=== PATIENT | female | born 1965 | race Caucasian/White ===

== ENCOUNTER 2020-01-17 12:07 | Outpatient (CLI) | payer MEDICARE, SELFPAY ==
--- NOTE | ~2020-01-17 | XR_ITS ---
EXAMINATION: XR knee RT min 4V DATE: 01/17/2020 12:24 INDICATION: Right knee pain and effusion. TECHNIQUE: 4 views of right knee were obtained. COMPARISON: Right knee radiographs 04/04/2018 FINDINGS: There is varus attenuation at the knee. No fracture. There is severe osteoarthritis of medi al compartment, moderate osteoarthritis of patellofemoral compartment, and mild osteoarthritis of lat eral compartment. There is a moderate-sized knee joint effusion with loose bodies. IMPRESSION: 1. Severe right knee osteoarthritis. 2. Moderate-sized right knee joint effusion with loose bodies. Reviewed, dictated and finalized at location A.
== END 2020-01-17 12:08 | disposition home or self-care (01) ==
PROVIDERS: PCP Family Medicine; Visit Provider Family Medicine
DX: M25.461 Effusion, right knee (principal); M17.11 Unilateral primary osteoarthritis, right knee
CPT/HCPCS: 73564

== ENCOUNTER 2020-01-24 15:59 | Outpatient (CLI) | payer MEDICARE, SELFPAY ==
--- NOTE | ~2020-01-24 | MR_ITS ---
EXAMINATION: MR lumbar spine wo con DATE: 01/24/2020 16:41 INDICATION: Low back pain. TECHNIQUE: Magnetic resonance imaging (MRI) of the lumbar spine was performed without intravenous con trast. Sequences included sagittal T2-weighted FSE, sagittal T2-weighted FS FSE, sagittal T1-weighted FSE, and axial T2-weighted FSE. COMPARISON: None FINDINGS: 3 mm retrolisthesis L5 on S1. Vertebral body heights are normal. Annular fissures and mild disc heigh t loss at L1-L2 and moderate disc height loss at L5-S1. Additional mild disc height loss and small ce ntral disc protrusion at T10-T11. T1 hyperintense hemangioma at T12 and L4. The conus medullaris term inates at L1. There is normal signal in the caudal spinal cord. Paravertebral soft tissues are unrema rkable. The following disc levels are specifically discussed: T12-L1: The disc does not extend beyond the endplate margin. There is mild bilateral facet joint oste oarthritis. There is no neural foraminal stenosis. There is no central canal stenosis. L1-L2: Disc is bulging. There is mild bilateral facet joint osteoarthritis. There is mild bilateral n eural foraminal stenosis. There is mild central canal stenosis. L2-L3: The disc does not extend beyond the endplate margin. There is hypertrophy of the ligamentum fl avum. There is moderate right and severe left facet joint osteoarthritis. There is mild bilateral jessy ral foraminal stenosis. There is mild central canal stenosis. L3-L4: The disc does not extend beyond the endplate margin. There is hypertrophy of the ligamentum fl avum. There is mild right and moderate left facet joint osteoarthritis. There is mild right and mode rate left neural foraminal stenosis. There is mild central canal stenosis. L4-L5: Disc is mildly bulging. There is mild hypertrophy of the ligamentum flavum. There is mild bila teral facet joint osteoarthritis. There is moderate bilateral neural foraminal stenosis. There is mil d central canal stenosis. L5-S1: Fissure with broad-based disc extrusion extending from foraminal zone to foraminal zone with disc mat erial extending a few millimeters caudal to the level of the superior endplate of S1. There is mild h ypertrophy of the ligamentum flavum. There is severe bilateral facet joint osteoarthritis. There is moderate to severe neural foraminal stenosis. There is moderate central canal stenosis. IMPRESSION: 1. Continued slight progression of still moderate lumbar spondylosis. Reviewed, dictated and finalized at location A.
--- NOTE | ~2020-01-24 | XR_ITS ---
EXAMINATION: XR sacroiliac joints min 3V DATE: 01/24/2020 16:55 INDICATION: Sacroiliitis. Low back pain. TECHNIQUE: AP and left and right oblique views of the pelvis and sacrum and joints were obtained. COMPARISON: None. FINDINGS: Bone alignment is normal. No fracture. Bilateral sacral iliac joint spaces appear symmetric and relat ively preserved. No erosions or subarticular sclerosis to suggest an inflammatory sacroiliitis. Mild bilateral hip osteoarthritis. Severe disc height loss at L5-S1 and mild disc height loss at L4-L5. IU D in expected position in the central pelvis. IMPRESSION: 1. Unremarkable sacral iliac joints. 2. Severe spondylosis at the lumbosacral junction. 3. IUD Reviewed, dictated and finalized at location A.
== END 2020-01-24 16:00 | disposition home or self-care (01) ==
PROVIDERS: PCP Family Medicine; Visit Provider Nurse Practitioner Family
DX: M47.816 Spondylosis without myelopathy or radiculopathy, lumbar region (principal); M47.817 Spondylosis without myelopathy or radiculopathy, lumbosacral region; M46.1 Sacroiliitis, not elsewhere classified; Z97.5 Presence of (intrauterine) contraceptive device
CPT/HCPCS: 72148; 72202

== ENCOUNTER 2020-08-06 06:54 | Outpatient (NON) | payer MEDICARE, SELFPAY ==
[2020-08-06 17:56] LABS: SARS-CoV-2 RNA PCR Negative
== END 2020-08-06 06:55 ==
LOC: ANHCOVIDDT 07:01
PROVIDERS: PCP Family Medicine; Visit Provider Physician Assistant
DX: R68.89 Other general symptoms and signs (principal); Z20.828 Contact with and (suspected) exposure to other viral communicable diseases
CPT/HCPCS: 87635; C9803; U0003

== ENCOUNTER 2020-08-25 13:38 | Outpatient (CLI) | payer MEDICARE, SELFPAY ==
--- NOTE | ~2020-08-25 | MR_ITS ---
EXAMINATION: MR cervical spine wo con DATE: 08/25/2020 14:45 INDICATION: Neck pain. TECHNIQUE: Magnetic resonance imaging (MRI) of the cervical spine was performed without intravenous c ontrast. Sequences included sagittal T2-weighted FSE, sagittal STIR FSE, sagittal T1-weighted FSE, ax ial MERGE, and axial T2-weighted FSE. COMPARISON: Cervical spine MRI 04/12/2017, neck CT 12/14/2018 FINDINGS: There is 2 mm retrolisthesis of C3 on C4 and C5 on C6. Vertebral body heights are normal. T here is severely decreased disc height at C3-C4 and moderately decreased disc height at C5-C6 with en dplate remodeling. There is increased T2-weighted signal intensity in the disc at C5-C6, likely degen erative. The spinal cord signal intensity is normal. The following disc levels are specifically discu ssed: C2-C3: The disc does not extend beyond the endplate margin. There is no uncovertebral joint osteoarth ritis. There is moderate bilateral facet joint osteoarthritis. There is no neural foraminal stenosis. There is no central canal stenosis. C3-C4: The disc is bulging. There is severe right and moderate left uncovertebral joint osteoarthriti s. There is moderate bilateral facet joint osteoarthritis. There is moderate right and mild left neur al foraminal stenosis. There is mild central canal stenosis. C4-C5: The disc does not extend beyond the endplate margin. There is no uncovertebral joint osteoarth ritis. There is mild right and severe left facet joint osteoarthritis. There is mild left neural fora abhijit stenosis. There is no central canal stenosis. C5-C6: The disc is bulging. There is severe bilateral uncovertebral joint osteoarthritis. There is mi ld bilateral facet joint osteoarthritis. There is mild right and moderate left neural foraminal steno sis. There is mild central canal stenosis. C6-C7: The disc is bulging. There is mild bilateral uncovertebral joint osteoarthritis. There is mode rate bilateral facet joint osteoarthritis. There is mild bilateral neural foraminal stenosis. There i s mild central canal stenosis. C7-T1: There is a central protrusion. There is no uncovertebral joint osteoarthritis. There is severe bilateral facet joint osteoarthritis. There is mild bilateral neural foraminal stenosis. There is no central canal stenosis. IMPRESSION: 1. Severe cervical spondylosis, worsened from 04/12/2017. Reviewed, dictated and finalized at location B. 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
== END 2020-08-25 13:39 | disposition home or self-care (01) ==
LOC: ANHIMG 13:39
PROVIDERS: PCP Family Medicine; Visit Provider Nurse Practitioner Family
DX: M54.2 Cervicalgia (principal); M47.812 Spondylosis without myelopathy or radiculopathy, cervical region
CPT/HCPCS: 72141

== ENCOUNTER 2020-10-12 09:45 | Outpatient (CLI) | payer MEDICARE, SELFPAY ==
--- NOTE | 2020-10-12 11:12 | ECG_ITS ---
Measurements Intervals [place] Rate: 90 P: 38 [place]: 159 QRS: 8 QRSD: 93 T: 30 QT: 316 QTc: 387 Interpretive Statements SINUS RHYTHM POSSIBLE LEFT ATRIAL ENLARGEMENT INCOMPLETE RIGHT BUNDLE BRANCH BLOCK MINIMAL Q WAVES- HIGH LATERAL LEADS BASELINE ARTIFACT- I, II, III, AVR, AVL, AVF, V3 BORDERLINE ECG Electronically Signed On 10-12-2020 11:50:17 [employer]OR OF [employer]ES by Ata Mckeon D.O.
[2020-10-12 12:04] LABS: Basophils Percent Auto 0.4 % (0.2-1.2); Eosinophils Absolute Auto 0.1 K/mm3 (0-0.3); Eosinophils Percent Auto 1.1 % (0-4.4); Hematocrit 44.1 % (37.0-47.0); Hemoglobin 13.6 g/dL (12.0-15.0); Immature Granulocyte Absolute 0.02 K/mm3 (0.00-0.031); Immature Granulocyte Percent A 0.2 % (0-0.5); Lymphocytes Absolute Auto 2.22 K/mm3 (0.9-3.2); Lymphocytes Percent Auto 27.5 % (18.3-44.2); Mean Corpuscular HGB Conc 30.8 g/dl (32-36); Mean Corpuscular Hemoglobin 25.9 pg (26-34); Mean Platelet Volume 10.2 fl (7.4-10.4); Monocytes Absolute Auto 0.5 K/mm3 (0.1-0.6); Monocytes Percent Auto 6.1 % (2.6-8.5); Neutrophils Absolute Auto 5.2 K/mm3 (1.3-6.7); Neutrophils Percent Auto 64.7 % (45.5-73.1); Platelet Count Result 295 k/mm3 (150-375); Red Blood Count 5.25 M/mm3 (4.2-5.4); Red Cell Distribution Width 18.3 % (11.5-14.5); White Blood Count 8.1 K/mm3 (4.5-10.0)
[2020-10-12 12:13] LABS: Add Urine Microscopic? YES; Appearance Urine Clear (Clear); Bilirubin Urine Negative (Negative); Blood Urine Negative (Negative); Color Urine Straw (Yellow); Glucose Urine UA 3+ mg/dL (Negative); INR 0.8; Ketones Urine Negative (Negative); Leukocyte Esterase Ur Negative LEU/UL (Negative); Nitrate Urine Negative (Negative); Protein Urine Negative (Negative); Prothrombin Time 11.8 Seconds (11.1-14.7); RBC Urine 0-2 /hpf (0-2); Specific Grav Ur 1.021 (1.001-1.035); Squamous Epithelial Cell Urine Occasional /hpf (Few); Urobilinogen Urine Negative mg/dL (<2.0)
[2020-10-12 12:14] LABS: Hemoglobin A1C 7.4 % (<5.7); Partial Thromboplastin Time 31.9 SECONDS (22.3-36.8)
[2020-10-12 12:17] LABS: Anion Gap 9 mmol/L (8-16); Blood Urea Nitrogen 20 mg/dL (7-17); Calcium 10.1 mg/dL (8.4-10.2); Carbon Dioxide 32 mmol/L (22-30); Chloride 96 mmol/L (98-107); Estimated Glomerular Filt Rate 39; Glucose 186 mg/dL (65-105); Potassium 3.7 mmol/L (3.4-5.0); Sodium 137 mmol/L (137-145)
[2020-10-12 12:22] LABS: Urine Cotinine NEGATIVE
== END 2020-10-12 09:46 | disposition home or self-care (01) ==
LOC: ANHSURGERY 09:50
PROVIDERS: PCP Family Medicine; Visit Provider Orthopaedic Surgery
DX: Z01.812 Encounter for preprocedural laboratory examination (principal); M17.11 Unilateral primary osteoarthritis, right knee
CPT/HCPCS: 80048; 80307; 81001; 82040; 83036; 85025; 85610; 85730; 87081; 93005

== ENCOUNTER 2020-11-16 10:27 | Outpatient (CLI) | payer MEDICARE, SELFPAY ==
--- NOTE | ~2020-11-16 | US_ITS ---
EXAMINATION: US retroperitoneal comp DATE: 11/16/2020 10:57 INDICATION: Acute kidney failure TECHNIQUE: Multiple grayscale and Doppler ultrasound images of the kidneys were obtained. COMPARISON: None. FINDINGS: The right kidney measures 9.9 x 5.1 x 4.7 cm. The left kidney measures 9.9 x 4.7 x 4.8 cm. The kidneys demonstrate normal parenchymal echogenicity. There is no hydronephrosis. The bladder is n ormal. IMPRESSION: 1. Normal kidneys without hydronephrosis. Reviewed, dictated and finalized at location B.
== END 2020-11-16 10:28 | disposition home or self-care (01) ==
PROVIDERS: PCP Family Medicine; Visit Provider Internal Medicine Nephrology
DX: N17.9 Acute kidney failure, unspecified (principal)
CPT/HCPCS: 76770

== ENCOUNTER 2020-12-04 18:20 | Emergency (ER) | payer MEDICARE, SELFPAY ==
[2020-12-04 18:23] VITALS: BP 160/96; PULSE 128; RESP 20; TEMP 37.1; O2SAT 95
--- NOTE | 2020-12-04 18:46 | PC.NURSE ---
s/p cellulitis to posterior neck/upper back following a camping trip (came home 11/20), saw PCP 11/24 and was monitoring size and redness, returned to PCP 12/02 and started on doxy. Today states I'm concerned for staph and want to make sure it's not an abscess . Pt showed picture of wound from yesterday, pus drainage noted, today wound is soft/improved redness/no drainage noted/afebrile
--- NOTE | 2020-12-04 18:56 | ED.SKABFB ---
HPI - Skin/Abscess/Foreign Bdy General Chief complaint: Skin/Abscess/Foreign Body Stated complaint: skin complaint Time Seen by Provider: 12/04/20 18:48 Source: patient Mode of arrival: ambulatory Limitations: no limitations History of Present Illness HPI narrative: This is a 55 year old female that presents to the ER for rash to the posterior neck x 10 days. Reports she has been seeing her PCP for this. Reports she was started on Doxycycline yesterday. Reports some drainage to the area yesterday. Denies fever. Related Data Home Medications Medication Instructions Recorded Confirmed diclofenac sodium 4 g TOPICAL QID PRN 10/12/20 12/03/20 empagliflozin [Jardiance] 10 mg PO QAM 10/12/20 12/03/20 guaifenesin [Mucinex] 1,200 mg PO DAILY 10/12/20 12/03/20 morphine 15 mg PO BID PRN 10/12/20 12/03/20 omega-3 fatty acids-vitamin E 1 cap PO BID 10/12/20 12/03/20 [Fish Oil] oxybutynin chloride 5 mg tablet 5 mg PO BID tablet 11/25/20 12/03/20 Allergies Allergy/AdvReac Type Severity Reaction Status Date / Time Sulfa (Sulfonamide Allergy Severe Hives / Verified 12/04/20 18:26 Antibiotics) Red Face; airway swelling propoxyphene Allergy Mild itching; Verified 12/04/20 18:26 hives meperidine AdvReac Mild Nausea and Verified 12/04/20 18:26 Vomiting SUTURE AdvReac Mild INFLAMATION Uncoded 12/04/20 18:26 Review of Systems Review of Systems: Narrative: CONSTITUTIONAL: Denies fever SKIN: Reports rash and itching. All systems reviewed & are unremarkable except as noted in HPI and below PMFSH Past Medical History Medical History Adverse reaction to anesthetic agent Arthritis Benign essential HTN Cellulitis Chronic pain Dizziness GERD (gastroesophageal reflux disease) Hoarseness Mixed hyperlipidemia Overactive bladder Seasonal allergies Urinary frequency Vertigo Vision abnormalities Surgical History Surgical History History of right knee surgery 1981, Dr. Meredith History of shoulder surgery 1981, Dr. Meredith Type 2 diabetes mellitus without complications Family History Family History Father Family history of cardiac disorder Family history of cardiomyopathy Family history of coronary artery disease Mother Family history of malignant neoplasm of uterus Family history of malignant neoplasm of cervix Grandparent Carcinoma of colon Other Family history of lymphoma Hypertension Malignant neoplasm of prostate Social History Social History (Updated 12/03/20 @ 10:14 by Siri Jaffe CMA) Social History: Single Second hand tobacco smoke exposure: No Alcohol intake: never Substance use: never Substance use type: does not use Additional living arrangements comments: SON Additional occupation/education comments: Disability Gender identity (if verbalized by the patient): Female Spiritual care concerns: No Exam Narrative: Exam Narrative: GENERAL: Well-appearing, well-nourished, and in no acute distress. HEAD: Normocephalic, atraumatic. EYES: EOMI. NECK: Supple. No adenopathy or masses. EXTREMITIES: Normal range of motion. No edema. SKIN: Warm, dry. Red macules coalescing on the posterior neck. No active drainage or central fluctuance to suggest abscess NEURO: No focal deficits. Alert and oriented x3. PSYCH: Normal mood and affect Course Vital Signs Vital signs: Vital Signs Temperature 98.7 F 12/04/20 18:23 Pulse Rate 128 H 12/04/20 18:23 Respiratory Rate 20 12/04/20 18:23 Blood Pressure 160/96 H 12/04/20 18:23 Pulse Oximetry 95 12/04/20 18:23 Temperature 98.7 F 12/04/20 18:23 Pulse Rate 128 H 12/04/20 18:23 Respiratory Rate 20 12/04/20 18:23 Blood Pressure 160/96 H 12/04/20 18:23 Pulse Oximetry 95 12/04/20 18:23 MDM - Skin/Abscess/
[2020-12-04 19:44] VITALS: BP 122/86; PULSE 96; RESP 16; O2SAT 100
== END 2020-12-04 19:56 | disposition home or self-care (01) ==
PROVIDERS: Emergency Provider Emergency Medicine; PCP Family Medicine
DX: L03.221 Cellulitis of neck (principal); M19.90 Unspecified osteoarthritis, unspecified site; I10 Essential (primary) hypertension; K21.9 Gastro-esophageal reflux disease without esophagitis; E78.2 Mixed hyperlipidemia; N32.81 Overactive bladder; E11.9 Type 2 diabetes mellitus without complications; Z79.84 Long term (current) use of oral hypoglycemic drugs
CPT/HCPCS: 99281

== ENCOUNTER 2021-10-28 11:14 | Outpatient (CLI) | payer MEDICARE, SELFPAY ==
--- NOTE | ~2021-10-28 | XR_ITS ---
EXAMINATION: XR hand BI arthritis min 3V EXAM DATE: 10/28/2021 11:41 INDICATION: M19.90 - Unspecified osteoarthritis, unspecified site. TECHNIQUE: Right hand frontal, lateral and oblique projections obtained and reviewed. Left hand fron tanisha, lateral and oblique projections obtained and reviewed. Catchers projection of both hands. Compar ilene is made to prior examination from 11/16/2015. FINDINGS: Right hand: Mild polyarticular primary osteoarthritis. There are no acute fractures identified. No r adiopaque foreign bodies identified. There are no bony erosions identified. Left hand: Mild polyarticular primary osteoarthritis. There are no bony erosions identified. There ar e no acute fractures identified. No radiopaque foreign bodies identified. IMPRESSION: Mild symmetric bilateral hand osteoarthritis. Reviewed, dictated and finalized at location G.
== END 2021-10-28 11:15 | disposition home or self-care (01) ==
PROVIDERS: PCP Family Medicine; Visit Provider Internal Medicine
DX: M79.641 Pain in right hand (principal); M79.642 Pain in left hand; M19.042 Primary osteoarthritis, left hand; M19.041 Primary osteoarthritis, right hand
CPT/HCPCS: 73130

== ENCOUNTER 2021-11-05 07:36 | Outpatient (CLI) | payer MEDICARE, SELFPAY ==
--- NOTE | ~2021-11-05 | MR_ITS ---
EXAMINATION: MR hand RT wo/w con, MR hand LT wo/w con DATE: 11/05/2021 09:45 INDICATION: Lateral hand pain and weakness with inability to flex the fingers. Laboratory positive fo r rheumatoid arthritis. TECHNIQUE: 1. Magnetic resonance imaging (MRI) of the right hand was performed without and with 20 mL Multihance intravenous contrast to include the metacarpals and digits. Sequences included axial, sagittal and coronal T1-weighted FSE and T2-weighted FS FSE, axial T1-weighted FS FSE and postcontrast axial and c oronal T1-weighted FS FSE. 2. MRI of the left hand was performed without and with 20 mL Multihance intravenous contrast to inc lude the metacarpals and digits. Same contrast bolus was utilized for both studies. Sequences include d axial, sagittal and coronal T1-weighted FSE and T2-weighted FS FSE, axial T1-weighted FS FSE and po stcontrast axial and coronal T1-weighted FS FSE. COMPARISON: Bilateral hand radiographs dated 10/28/2021 FINDINGS: No fracture or pathologic marrow replacing process at either hand. Persistent flexion deformity at th e right fifth proximal interphalangeal joint with suggestion of some bowstringing of the flexor tendo n at the level of the mid to distal proximal phalanx suggesting disruption of the A3 rohan although assessment is somewhat limited on the larger field of view images of the hand as opposed to of the nger. Bone alignment is otherwise normal at both hands. Mild polyarticular osteoarthritis with typica l distribution most prominent at the first carpometacarpal and multiple predominantly distal interpha langeal joints. There is enhancing synovitis and multiple enhancing erosions at both hands consistent with an inflammatory arthritis with distribution most consistent with the provided history of rheuma toid arthritis. In the right hand erosions are seen at the proximal pole scaphoid, the lunate, capitate, at the radia l ulnar sides of the head of the fourth metacarpal, at the radial base of the third proximal phalanx and at the radial and ulnar sides of the base of the fourth proximal phalanx. There is enhancing syno vitis with thickening of the collateral ligament complexes at the second-fourth metacarpophalangeal j oints. Additional enhancing synovitis and thickening of the radial collateral ligament is seen at the fourth proximal interphalangeal joint. In the left hand there is enhancing synovitis at the third and fifth metacarpophalangeal joints and a t the fourth and fifth proximal interphalangeal joints with thickening of many of the associated radi al and ulnar collateral ligaments. Single small erosion at the radial base of the second proximal pha lanx. IMPRESSION: 1. Synovitis at several of the bilateral metacarpophalangeal and proximal interphalangeal joints lizett g with several periarticular erosions, the majority in the right hand consistent with provided histor y of rheumatoid arthritis. 2. Persistent flexion deformity at the right first proximal interphalangeal joint with suggestion of disruption of the A2 rohan resulting bowstringing of the flexor tendon. Reviewed, dictated and finalized at location A. IMPRESSION: 1. Synovitis at several of the bilateral metacarpophalangeal and proximal inter phalangeal joints along with several periarticular erosions, the majority in th e right hand consistent with provided history of rheumatoid arthritis. 2. Persistent flexion deformity at the right first proximal interphalangeal garrick nt with suggestion of disruption of the A2 rohan resulting bowstringing of the flexor tendon.
[2021-11-05 08:27] LABS: Estimated Glomerular Filt Rate > 60
== END 2021-11-05 07:37 | disposition home or self-care (01) ==
PROVIDERS: PCP Family Medicine; Visit Provider Internal Medicine
DX: M79.641 Pain in right hand (principal); M79.642 Pain in left hand; M65.842 Other synovitis and tenosynovitis, left hand; M65.841 Other synovitis and tenosynovitis, right hand; M21.832 Other specified acquired deformities of left forearm; M21.831 Other specified acquired deformities of right forearm
CPT/HCPCS: 73220; A9577

== ENCOUNTER 2021-12-15 08:01 | Outpatient (CLI) | payer MEDICARE, SELFPAY ==
--- NOTE | 2021-12-15 09:08 | ECG_ITS ---
Measurements Intervals [place] Rate: 81 P: 37 [place]: 163 QRS: 1 QRSD: 102 T: 31 QT: 357 QTc: 415 Interpretive Statements SINUS RHYTHM INCOMPLETE RIGHT BUNDLE BRANCH BLOCK DELAYED PRECORDIAL R/S TRANSITION BASELINE ARTIFACT- I, II, AVR, AVL, AVF BORDERLINE ECG Electronically Signed On 12-15-2021 9:31:16 CDT by Ata Mckeon D.O.
[2021-12-15 09:34] LABS: Basophils Absolute Auto 0.1 K/mm3 (0.0-0.1); Basophils Percent Auto 0.5 % (0.2-1.2); Eosinophils Absolute Auto 0.1 K/mm3 (0-0.3); Eosinophils Percent Auto 0.8 % (0-4.4); Hematocrit 47.7 % (37.0-47.0); Hemoglobin 15.3 g/dL (12.0-15.0); Immature Granulocyte Absolute 0.02 K/mm3 (0.00-0.031); Immature Granulocyte Percent A 0.2 % (0-0.5); Lymphocytes Absolute Auto 2.65 K/mm3 (0.9-3.2); Lymphocytes Percent Auto 27.5 % (18.3-44.2); Mean Corpuscular HGB Conc 32.1 g/dl (32-36); Mean Corpuscular Hemoglobin 28.8 pg (26-34); Mean Corpuscular Volume 89.7 fl (80-100); Mean Platelet Volume 10.5 fl (7.4-10.4); Monocytes Absolute Auto 0.5 K/mm3 (0.1-0.6); Monocytes Percent Auto 5.2 % (2.6-8.5); Neutrophils Absolute Auto 6.3 K/mm3 (1.3-6.7); Neutrophils Percent Auto 65.8 % (45.5-73.1); Platelet Count Result 274 k/mm3 (150-375); Red Blood Count 5.32 M/mm3 (4.2-5.4); Red Cell Distribution Width 14.7 % (11.5-14.5); White Blood Count 9.6 K/mm3 (4.5-10.0)
[2021-12-15 09:43] LABS: Albumin Level 4.8 g/dL (3.5-5.1)
[2021-12-15 09:44] LABS: INR 0.9; Prothrombin Time 11.9 Seconds (11.1-14.7)
[2021-12-15 09:45] LABS: Partial Thromboplastin Time 33.3 SECONDS (22.3-36.8)
[2021-12-15 09:46] LABS: Anion Gap 11 mmol/L (8-16); Blood Urea Nitrogen 20 mg/dL (7-17); Calcium 9.2 mg/dL (8.4-10.2); Carbon Dioxide 27 mmol/L (22-30); Chloride 95 mmol/L (98-107); Estimated Glomerular Filt Rate > 60; Glucose 137 mg/dL (65-110); Potassium 4.4 mmol/L (3.4-5.0); Sodium 133 mmol/L (137-145)
[2021-12-15 09:47] LABS: Urine Cotinine NEGATIVE
[2021-12-15 10:28] LABS: Hemoglobin A1C 6.4 % (<5.7)
== END 2021-12-15 08:02 | disposition home or self-care (01) ==
PROVIDERS: Anesthesiology; PCP Family Medicine; Visit Provider Orthopaedic Surgery
DX: Z01.818 Encounter for other preprocedural examination (principal); M17.11 Unilateral primary osteoarthritis, right knee; R94.4 Abnormal results of kidney function studies; E11.9 Type 2 diabetes mellitus without complications
CPT/HCPCS: 36415; 80048; 80307; 82040; 83036; 85025; 85610; 85730; 86850; 86900; 86901; 87081; 93005

== ENCOUNTER 2021-12-27 00:30 | Day surgery (SDC) | payer MEDICARE, SELFPAY ==
[2021-12-15 08:21] VITALS: BP 142/91; PULSE 85; RESP 16; TEMP 36.1; O2SAT 97; BMI 38.0
--- NOTE | 2021-12-15 08:38 | PC.NURSE ---
Report to the Outpatient Waiting Room, entrance under the green pavilion located off [facility], at time __6:00AM on date ___12/27/21____. OR Time: __7:30AM . - You and your visitor will be asked a series of questions to screen for COVID 19 for your protection. - Only one visitor is allowed at this time. - The patient visitor is requested to leave or wait in car when not with patient. - A mask is required within the hospital. Patients may have clear liquids (water, carbonated beverages, clear teas, apple juice) until 3 hours prior to surgery with a maximum of 20 ounces. - No food from midnight until time of surgery - Infants may have breast milk until 4 hours before surgery, formula 6 hours prior to surgery. - Children will be allowed to drink immediately following surgery. If applicable, please bring a bottle or sippy cup to assist with drinking. Juice, water, soda, and popsicles are readily available. For infants on formula, please bring formula the day of surgery. Pacifiers are allowed. Take the following medications with a SIP of water the morning of surgery: ___DULOXETINE, MORPHINE NEEDED FOR PAIN Medications to discontinue per physician ____HOLD ALL VITAMINS/SUPPLEMENTS 7 DAYS PRE-OP, (XERALTO IS ORDERED FOR AFTER SURGERY) Date to take last dose___12/20/21 Please no make-up, nail tajik, hairspray, perfume, deodorant, or body powder the day of surgery. No jewelry (including any body piercings) or valuables the day of surgery, leave them at home. Please take a shower or bath the night before, or the morning of, surgery with an antibacterial soap. Wear comfortable, loose fitting clothing. Children are encouraged to wear pajamas. - Jewelry must be removed prior to entering the operating room. Rings and piercings that are not removed may be cut off. - The hospital will not accept responsibility for valuables. - Please leave all valuables, including medications, at home the day of surgery. If you are going home after surgery, a licensed set key driver must drive you home. - NO public transportation without another adult. - We recommend that an adult stay with you for 24 hours following discharge. - We also recommend that you do not drive, make important decision, drink alcoholic beverages, or take any drugs that were not prescribed by your health care provider for at least 24 hours after your discharge time. For Pediatric surgeries, we recommend two adults accompany the child home (only one inside the building at this time). Follow any additional instructions given to you from your surgeon. If you or anyone in your household have experienced Covid symptoms in the past week, please notify your surgeon or the nurse liaison at the phone number below for possible testing. Telephone instructions given to __PATIENT and asked if any additional questions and then verbalized understanding. Patient advised to call surgeon office or pre surgery nurse liaison [phone] if any additional questions.
--- NOTE | 2021-12-26 21:24 | WPDANESEPPF ---
Anes - Initial Pre Proc Eval Procedure: Operation Date: 12/27/21 07:30 Proposed Procedures p Right Total Knee Arthroplasty - Db Juarez MD Date/Time: 12/26/21 21:24 Surgeon: Db Juarez MD Pre Op Diagnosis: oa right knee Patient Data Age: 56 Gender: F Height: 1.68 m Weight: 106.7 kg Last Vital Signs Temp 36.1 C L 12/15/21 08:21 Pulse 85 12/15/21 08:21 Resp 16 12/15/21 08:21 BP 142/91 H 12/15/21 08:21 Pulse Ox 97 12/15/21 08:21 Allergies Allergy/AdvReac Type Severity Reaction Status Date / Time Sulfa (Sulfonamide Allergy Severe Hives / Verified 12/27/21 06:17 Antibiotics) Red Face; airway swelling propoxyphene Allergy Mild itching; Verified 12/27/21 06:17 hives meperidine AdvReac Mild Nausea and Verified 12/27/21 06:17 Vomiting SUTURE AdvReac Mild INFLAMATION Uncoded 12/27/21 06:17 Home Medications Medication Instructions Recorded Confirmed Type morphine 15 mg PO BID PRN 10/12/20 12/27/21 History omega-3 fatty acids-vitamin E 1 cap PO DAILY 10/12/20 12/27/21 History [Fish Oil] cetirizine 10 mg tablet 10 mg PO DAILY #90 tablet 10/21/20 12/27/21 Rx exenatide microspheres 2 mg/0.85 2 mg SUBCUT WEEKLY #10.2 ml 04/16/21 12/27/21 Rx mL subcutaneous auto-injector diclofenac sodium 1 % topical gel 4 g TOPICAL QID PRN #100 g 07/20/21 12/15/21 Rx atorvastatin 40 mg tablet 40 mg PO QPM #90 tablet 08/27/21 12/27/21 Rx duloxetine 30 mg capsule,delayed 30 mg PO QAM #90 cap 08/27/21 12/27/21 Rx release duloxetine 60 mg capsule,delayed 60 mg PO QAM #90 cap 08/27/21 12/27/21 Rx release omeprazole 40 mg capsule,delayed 40 mg PO BID #180 cap 08/27/21 12/27/21 Rx release lancets #200 each 11/24/21 12/08/21 Rx rivaroxaban 10 mg tablet 10 mg PO DAILY #14 tablet 12/08/21 12/15/21 Rx azelastine 1 spray INTRANASAL Q12H PRN 12/15/21 12/27/21 History fluticasone propionate 1 spray INTRANASAL Q12H PRN 12/15/21 12/15/21 History multivitamin [Multiple Vitamin] 1 tablet PO DAILY 12/15/21 12/27/21 History oxybutynin chloride 5 mg PO BID 12/15/21 12/27/21 History triamcinolone acetonide 1 applic TOPICAL BID PRN 12/15/21 12/27/21 History Patient hx anesthesia problems: none Family hx anesthesia problems: none Results Review: All pre-operative results and documents have been reviewed as part of the pre-operative evaluation. [facility] Past Medical History Medical History (Updated 12/26/21 @ 21:26 by Gregory Landin MD) Adverse reaction to anesthetic agent Allergies Arthritis Benign essential HTN Bilateral hand pain Cellulitis Chronic narcotic use Chronic pain Diabetes Dizziness Encounter for medication management GERD (gastroesophageal reflux disease) Hoarseness Mixed hyperlipidemia Obesity Overactive bladder Right knee DJD Seasonal allergies Urinary frequency Vertigo Vision abnormalities Surgical History Surgical History History of carpal tunnel release of both wrists History of right knee surgery 1981, Dr. Meredith History of shoulder surgery 1981, Dr. Meredith Type 2 diabetes mellitus without complications Family History Family History Father Family history of cardiac disorder Family history of cardiomyopathy Family history of coronary artery disease Mother Family history of malignant neoplasm of uterus Family history of malignant neoplasm of cervix Grandparent Carcinoma of colon Other Family history of lymphoma Hypertension Malignant neoplasm of prostate Social History Social History Social History: Single Smoking status: Never smoker Second hand tobacco smoke exposure: No Alcohol intake: never Alcohol use details: Occasionally Substance use: never Substance use type: does not use Living arrangements: with family Additional living arrangement
--- NOTE | 2021-12-26 21:27 | WPDANESPNB ---
Anes - Peripheral Nerve Block Date/Time: 12/26/21 21:27 I have discussed with the patient/family/POA the placement of a peripheral nerve block for post-operative pain management, including associated risks, benefits, complications, and side effects. Alternative methods of post-operative analgesia were detailed. Questions were solicited and answers provided to the satisfaction of the patient/family/POA. Time-Out: A pre-procedural Time-Out was completed immediately before starting the procedure and confirmed: Patient Identification, Site, Procedure, Patient Position and the Availability of Requisite Equipment. Clinical Indications: Acute post-operative pain management requested by the operative surgeon. Nerve Block Insertion Note Anes-nerve block: adductor canal right Patient position: supine Skin prep: chlorhexidine Needle: 22 gauge, stimulating, insulated echogenic needle. Needle length: 80 mm Technique: ultrasound Technique comment: in plane Injectate: bupivacaine 0.5% with epi 5 mcg/ml (30cc) Observations: tolerated well Complications: none Procedure start time:: 725 Procedure end time:: 730
[2021-12-27] VITALS (16 sets, daily range): BP systolic 114–157; BP diastolic 58–90; PULSE 77–97; RESP 8–20; TEMP 35.9–36.6; O2SAT 93–98; BMI 37.3
--- NOTE | ~2021-12-27 | XR_ITS ---
EXAMINATION: XR knee RT 2V DATE: 12/27/2021 10:41 CDT INDICATION: Right total knee arthroplasty TECHNIQUE: 2 views right knee FINDINGS: There is a right total knee arthroplasty in expected position. Subcutaneous gas with fluid and air in the joint are consistent with recent surgery. No evidence of periprosthetic fracture. IMPRESSION: 1. Recent right total knee arthroplasty. Reviewed, dictated and finalized at location A.
[2021-12-27] MEDS: ACETAMINOPHEN 500 MG TABLET 1000 MG PO (06:30)
[2021-12-27] MEDS: LACTATED RINGERS 1,000 ML 30 ML IV CONT ×3 (06:35→11:13)
[2021-12-27 06:38] LABS: Glucose Point of Care 142 mg/dl (65-105)
[2021-12-27] MEDS: TRANEXAMIC ACID 1,000MG/ISO100 1,000 MG/100 ML BAG 200 MG IVPB (07:06)
--- NOTE | 2021-12-27 07:22 | WPDHPUPDATE1 ---
History and Physical Update Update Date/Time: 12/27/21 07:22 History and Physical has been reviewed, including an updated exam of the patient. There are NO changes in the patient's condition. Risks, benefits, and alternatives have been discussed and questions answered. Patient agrees to proceed with procedure.
[2021-12-27] MEDS: SCOPOLAMINE 1.5 MG PATCH TRANSDERM (07:23)
[2021-12-27] MEDS: ceFAZolin 2 GM/D5W 50 ML 2 GM/50 ML BAG IVPB ×3 (07:37→23:23)
[2021-12-27] MEDS: TRANEXAMIC ACID 1,000 MG/10 ML AMPUL 1000 MG IV PUSH (09:05)
[2021-12-27] MEDS: ceFAZolin SODIUM 1 GM VIAL IV PUSH (09:13)
--- NOTE | 2021-12-27 10:10 | W.PM.PROC2 ---
Procedure Note - Detailed Date of Procedure 12/27/21 Pre-op Diagnosis oa right knee Post-op Diagnosis Same Procedure Performed right total knee replacement Surgeon Db Juarez MD [employer] Aliyah Kaminski Anesthesia General and Regional Description of Procedure The patient was identified and proper site identified. In the preop holding area the anesthesia team performed a right lower extremity sub sartorial block after which the patient was taken to the operating room and transferred to the OR table positioning supine taking care to pad the torso and extremities. After general anesthetic induction and intubation a nonsterile tourniquet was placed high on the right thigh. The right lower extremity was prepped and draped in the usual sterile fashion. The extremity was exsanguinated and with the knee flexed tourniquet was inflated to 300 mmHg remaining up for approximately 65 minutes. An anterior midline incision was made and a modified medial parapatellar approach was used. Infra and suprapatellar fat pads were excised. Patella was resected leaving 15 mm thickness and prepared for the size 31 round three peg component. Using the intramedullary guide the distal femur was cut in the proper orientation for the size 62.5 femoral component. Using the extramedullary guide the tibia was cut perpendicular to the long axis protecting collateral ligaments and popliteal structures. It was sized to a 67. Flexion and extension gaps were balanced. Trial reduction was undertaken and the weight-bearing line was noted to passed through the center of the joint. Proximal tibia was drilled and punched in the proper orientation for the real component. Trial components were removed. The bone surfaces were washed with pulsatile lavage and dried. The real components were cemented simultaneously. The knee was held in extension and the patella held clamped until the cement had cured. Excess cement was removed from the joint. After trialing it was determined that the 12 mm insert gave full range of motion from 0-120 degrees of flexion and the patella tracked in the femoral groove with no lift-off. After final lavage the joint the real 12 E poly insert was placed and secured with a locking bar. A Betadine and saline wash was placed into the wound and allowed to sit for approximately 3 minutes and then evacuated. Periarticular tissues were infiltrated with 60 cc of the arthroplasty solution. Surgicel powder was used deep and superficial to the extensor mechanism prior to closure. The extensor mechanism was repaired with #2 Vicryl suture and 0 looped PDS suture. Subcu was reapproximated with 3-0 Monocryl and 2-0 Quill with tissue adhesive for the skin. A sterile dressing was applied. she tolerated the procedure well, was awakened and extubated, transferred to the bed and was taken to recovery area in stable condition. There were no known intraoperative complications. Perioperative antibiotics were administered. Estimated Blood Loss 250 Tourniquet Time 65 Drains No Packing No Pathology None sent Complications No immediate complications Condition Stable Disposition PACU
[2021-12-27] MEDS: fentaNYL CITRATE INJ (*CRX) 100 MCG/2 ML VIAL 25 MCG IV PUSH ×5 (10:35→11:05)
[2021-12-27] MEDS: diphenhydrAMINE HCl INJ 50 MG/ML VIAL 25 MG IV PUSH ×2 (10:50→11:10)
--- NOTE | 2021-12-27 11:05 | SUR.PREOP ---
1100: PT C/O RT PLANTAR FOOT ITCHING SEVERE SINCE ADMISSION TO PACU. FOOT CLEANSED WITH S&W. NO RASH/HIVES/REDNESS OR SWELLING. BENADRYL GIVEN. PT C/O PERSISTENT ITCHING WITH RELIEF THAT IS NOW AT PALMS OF HANDS AND EARS . DR. HAILE AWARE. NNO. CONTINUE TO MONITOR. VSS.
--- NOTE | 2021-12-27 12:01 | SUR.PHASEI ---
1155:SPOKE W/ DR. SUÁREZ TO MAKE AWARE OF PT ITCHING IN PACU UNRESOLVED. ORDERS RCV'D. REPORT GIVEN TO FLOOR RN
[2021-12-27 12:22] LABS: Glucose Point of Care 186 mg/dl (65-105)
[2021-12-27] MEDS: oxyCODONE/ACETAMINOPHEN (*CRX) 5-325 MG TABLET 1 TABLET PO ×3 (12:24→20:58)
[2021-12-27] MEDS: SODIUM CHLORIDE 0.9% IV 1,000 ML 125 ML IV CONT (12:25)
[2021-12-27] MEDS: KETOROLAC 15 MG/ML VIAL (*BKC) IV PUSH ×3 (12:50→23:23)
[2021-12-27] MEDS: OXYBUTYNIN CHLORIDE 5 MG TABLET PO (16:02)
[2021-12-27] MEDS: PANTOPRAZOLE 40 MG TABLET PO (16:02)
[2021-12-27] MEDS: SENNA/DOCUSATE SODIUM TABLET 2 TAB PO (16:03)
[2021-12-27] MEDS: diphenhydrAMINE HCl CAP 25 MG CAPSULE 50 MG PO ×2 (16:03→22:03)
[2021-12-27 16:38] LABS: Glucose Point of Care 309 mg/dl (65-105)
[2021-12-27 16:58] LABS: Glucose Point of Care 307 mg/dl (65-105)
[2021-12-27] MEDS: ATORVASTATIN 40 MG TABLET PO (17:42)
[2021-12-27] MEDS: INSULIN ASPART (*BKC) 100 UNITS/ML SUB-Q (18:04)
--- NOTE | 2021-12-27 18:32 | PC.NURSE ---
This patient, Ruthie Birch, was admitted to Medical Room 241-01 from surgical post op R total knee MD Cee report received from [facility] Pacu nurse. Patient/family oriented to hospital policies and general routines including ID bracelet, bed and alarms, visiting hours, pain management, procedures, bathroom and other care routines, personal items, smoking policy, room service/diet, and visiting hours. Information on how to activate the Rapid Response Team has been discussed. Patient/Family are encouraged to report perceived risks to care and to ask questions if they do not understand what they are told or what they should do.
[2021-12-27 21:25] LABS: Glucose Point of Care 228 mg/dl (65-105)
--- NOTE | 2021-12-27 21:44 | PM.IMHP ---
H&P: HPI History of Present Illness Date/Time: 12/27/21 21:44 Chief Complaint: Post op. Narrative: This is a 56-year-old female with past medical history significant for right knee degenerative joint disease, over reactive bladder, vertigo, mixed hyperlipidemia, obesity, diabetes, chronic pain, chronic narcotic use, gastroesophageal reflux disease. Patient is status post right knee total arthroplasty at the time of my visit patient denied any discomfort her sugars have been slightly elevated in the 300s. Patient denies any nausea, vomiting, abdominal pain, chills, fevers, states that her pain is well controlled, and has been participating with PT. Review of Systems Review of Systems: Patient is status post up total knee replacement right knee. Constitutional: Constitutional: Denies chills ENT: Denies dysphagia, Denies vertigo, Denies dizziness, Denies nasal congestion, Denies nasal discharge, Denies nasal obstruction and Denies odynophagia Cardiovascular: Cardiovascular: Denies chest pain, Denies lightheadedness, Denies palpitations and Denies dyspnea on exertion Respiratory: Respiratory: Denies cough and Denies excessive phlegm production Gastrointestinal: Gastrointestinal: Denies abdominal pain, Denies dyspepsia, Denies heartburn, Denies diarrhea, Denies nausea and Denies vomiting Genitourinary: Genitourinary: Denies dysuria Musculoskeletal: Musculoskeletal: Reports back pain and Reports other (Right knee total arthroplasty) Integumentary/Breasts: Skin/Breast: Denies rash Neurologic: Denies dizziness, Denies focal weakness and Denies Sensory deficit (Neuro) Endocrine: Endocrine: Denies cold intolerance, Denies heat intolerance, Denies polyphagia, Denies polydipsia, Denies polyuria and Denies palpitations Hematologic/Lymphatic: Hematologic/Lymphatic: Reports no additional hematologic/lymphatic complaints and Reports as per HPI Allergic/Immunologic: Allergic/Immunologic: Reports no additional allergic/immunologic complaints and Reports as per HPI [facility] Past Medical History Medical History (Updated 12/28/21 @ 02:54 by Dhaval Villa MD) Adverse reaction to anesthetic agent Allergies Arthritis Benign essential HTN Bilateral hand pain Cellulitis Chronic narcotic use Chronic pain Diabetes Dizziness Encounter for medication management GERD (gastroesophageal reflux disease) Hoarseness Mixed hyperlipidemia Obesity Overactive bladder Right knee DJD Seasonal allergies Urinary frequency Vertigo Vision abnormalities Surgical History Surgical History (Updated 12/28/21 @ 07:54 by YUDELKA Cavazos) History of carpal tunnel release of both wrists History of right knee surgery 1981, Dr. Meredith History of shoulder surgery 1981, Dr. Meredith Type 2 diabetes mellitus without complications Family History Family History Father Family history of cardiac disorder Family history of cardiomyopathy Family history of coronary artery disease Mother Family history of malignant neoplasm of uterus Family history of malignant neoplasm of cervix Grandparent Carcinoma of colon Other Family history of lymphoma Hypertension Malignant neoplasm of prostate Social History Social History Social History: Single Smoking status: Never smoker Second hand tobacco smoke exposure: No Alcohol intake: never Alcohol use details: Occasionally Substance use: never Substance use type: does not use Additional living arrangements comments: SON Additional occupation/education comments: Disability Gender identity (if verbalized by the patient): Female Sexual Orientation (if Verbalized by the Patient): Straight or Heterosexual Spiritual care concerns: No Meds Home Medications and Allergies Home Medications Medication Instructions Recorded Confirmed Type morphine 15 mg tablet,ex
[2021-12-28] MEDS: oxyCODONE/ACETAMINOPHEN (*CRX) 5-325 MG TABLET 1 TABLET PO ×3 (01:07→08:19)
[2021-12-28 05:48] VITALS: BP 112/59; PULSE 84; RESP 20; TEMP 36; O2SAT 95
[2021-12-28 05:50] VITALS: BP 112/59; PULSE 84; RESP 20; TEMP 36; O2SAT 95
[2021-12-28 06:14] LABS: Basophils Percent Auto 0.1 % (0.2-1.2); Hematocrit 32.6 % (37.0-47.0); Hemoglobin 10.6 g/dL (12.0-15.0); Immature Granulocyte Absolute 0.07 K/mm3 (0.00-0.031); Immature Granulocyte Percent A 0.5 % (0-0.5); Lymphocytes Absolute Auto 0.91 K/mm3 (0.9-3.2); Lymphocytes Percent Auto 6.9 % (18.3-44.2); Mean Corpuscular HGB Conc 32.5 g/dl (32-36); Mean Corpuscular Hemoglobin 29.2 pg (26-34); Mean Corpuscular Volume 89.8 fl (80-100); Monocytes Absolute Auto 0.9 K/mm3 (0.1-0.6); Monocytes Percent Auto 6.5 % (2.6-8.5); Neutrophils Absolute Auto 11.4 K/mm3 (1.3-6.7); Platelet Count Result 186 k/mm3 (150-375); Red Blood Count 3.63 M/mm3 (4.2-5.4); Red Cell Distribution Width 14.2 % (11.5-14.5); White Blood Count 13.3 K/mm3 (4.5-10.0)
[2021-12-28] MEDS: KETOROLAC 15 MG/ML VIAL (*BKC) IV PUSH (06:16)
[2021-12-28 06:27] LABS: Anion Gap 4 mmol/L (8-16); Blood Urea Nitrogen 12 mg/dL (7-17); Calcium 8.7 mg/dL (8.4-10.2); Carbon Dioxide 30 mmol/L (22-30); Chloride 106 mmol/L (98-107); Estimated CRCL calculation 83 ml/min; Estimated Glomerular Filt Rate > 60; Glucose 160 mg/dL (65-110); Potassium 4.9 mmol/L (3.4-5.0); Sodium 140 mmol/L (137-145)
[2021-12-28 07:40] LABS: Glucose Point of Care 141 mg/dl (65-105)
--- NOTE | 2021-12-28 07:48 | PM.PNORT ---
Subjective Subjective Date/Time Seen: 12/28/21 07:48 Post Op day: 1 Objective Data Vital Signs Vital Signs: Vital Signs - 24 hr 12/27/21 10:26 12/27/21 10:40 12/27/21 10:55 Temperature 96.6 F L Pulse Rate 93 90 94 Respiratory Rate 8 L 12 16 Blood Pressure 157/71 H 138/75 140/72 Pulse Oximetry 94 95 96 Oxygen Delivery Simple Face Mask Nasal Cannula Nasal Cannula Oxygen Flow Rate 6 3 3 12/27/21 11:10 12/27/21 11:25 12/27/21 11:40 Temperature Pulse Rate 91 97 88 Respiratory Rate 16 15 16 Blood Pressure 137/69 142/70 H 137/77 Pulse Oximetry 96 98 97 Oxygen Delivery Nasal Cannula Nasal Cannula Nasal Cannula Oxygen Flow Rate 3 2 2 12/27/21 13:32 12/27/21 13:35 12/27/21 12:10 Temperature 97.0 F L Pulse Rate 90 Respiratory Rate 16 Blood Pressure 131/78 Pulse Oximetry 98 Oxygen Delivery Room Air Room Air Oxygen Flow Rate 12/27/21 12:25 12/27/21 12:55 12/27/21 13:55 Temperature 96.8 F L 96.8 F L 96.8 F L Pulse Rate 83 77 91 Respiratory Rate 16 18 18 Blood Pressure 141/64 H 133/90 138/69 Pulse Oximetry 97 96 97 Oxygen Delivery Oxygen Flow Rate 12/27/21 18:00 12/27/21 19:34 12/27/21 20:19 Temperature 97.0 F L 97.3 F L Pulse Rate 97 97 94 Respiratory Rate 16 20 Blood Pressure 144/67 H 114/76 Pulse Oximetry 94 94 93 Oxygen Delivery Room Air Oxygen Flow Rate 12/27/21 22:00 12/27/21 20:00 12/27/21 23:52 Temperature 97.3 F L 97.9 F Pulse Rate 97 91 Respiratory Rate 20 20 Blood Pressure 114/76 126/58 L Pulse Oximetry 94 95 Oxygen Delivery Room Air Oxygen Flow Rate 12/28/21 05:48 12/28/21 05:50 Temperature 96.8 F L 96.8 F L Pulse Rate 84 84 Respiratory Rate 20 20 Blood Pressure 112/59 L 112/59 L Pulse Oximetry 95 95 Oxygen Delivery Oxygen Flow Rate Intake/Output Intake/Output: Intake & Output 12/25/21 12/26/21 12/27/21 05/24/22 23:59 23:59 23:59 23:59 Intake Total 3540 290 Output Total 1350 4000 Balance 2190 -3710 Meds/Results Medications: Active Medications Generic Name Dose Route Start Last Admin Trade Name Freq PRN Reason Stop Dose Admin Atorvastatin Calcium 40 mg 12/27/21 18:00 12/27/21 17:42 Atorvastatin 40 Mg Tablet PO 40 mg QPM JAIME Administration Azelastine HCl 1 spray 12/27/21 12:03 Azelastine Hcl Nasal 0.1% 137 Mcg/Spr 30 Ml Btl NASAL Q12H PRN Congestion Bisacodyl 10 mg 12/27/21 12:03 Bisacodyl 10 Mg Suppository RECTAL DAILY PRN Constipation Cyclobenzaprine HCl 10 mg 12/27/21 12:03 Cyclobenzaprine Hcl 10 Mg Tablet PO Q8H PRN Spasms Dextrose 12.5 gm 12/27/21 17:33 Dextrose 50% 25 Gm/50 Ml Syringe IV PUSH PRN PRN Hypoglycemia Protocol Diphenhydramine HCl 50 mg 12/27/21 12:03 12/27/21 22:03 Diphenhydramine Hcl Cap 25 Mg Capsule PO 50 mg Q6H PRN Administration Itching Duloxetine HCl 30 mg 12/28/21 09:00 Duloxetine Hcl 30 Mg Capsule.Dr GERONIMO ARRIAGA [facility] Duloxetine HCl 60 mg 12/28/21 09:00 Duloxetine Hcl 60 Mg Capsule.Dr GERONIMO ARRIAGA [facility] Fluticasone Propionate 1 spray 12/27/21 12:03 Fluticasone Propionate 0.05% Na Spr 16 Gm Btl (*Bkc) NASAL Q12H PRN Congestion Glucagon 1 mg 12/27/21 17:33 Glucagon For Inj 1 Mg Vial IM PRN PRN Hypoglycemia Protocol Glucose 15 gm 12/27/21 17:33 Glucose Oral Gel 15 Gm Of Glucse In 37.5 Gm Tube PO PRN PRN Hypoglycemia Protocol Cefazolin Sodium 2 gm in 50 mls @ 100 mls/hr 12/27/21 15:30 12/27/21 23:53 Ancef 2 Gm/D5w 50 Ml IVPB 12/28/21 07:59 Infused Q8H JAIME Infusion Dextrose 1,000 mls @ 100 mls/hr 12/27/21 17:33 Dextrose 5% 1,000 Ml IVPB PRN PRN Hypoglycemia Protocol Insulin Aspart 2 - 5 units 12/27/21 17:42 12/27/21 18:04 Insulin Aspart (*Bkc) 100 Units/Ml SUB-Q 4 units TIDWM JAIME Administration Protocol Ketorolac Tromethamine 15 mg 12/27/21 12:03 12/28
--- NOTE | 2021-12-28 07:56 | PM.DS ---
DS: Admitting Diagnosis Discharge Date 12/28/2021 Admitting Diagnosis Right knee osteoarthritis DS: Discharge Diagnosis Discharge Diagnosis (1) S/P total knee arthroplasty: Code(s): Z96.659 - Presence of unspecified artificial knee joint Status: Acute Assessment and Plan: 56-year-old female postop day 1 after right total knee replacement with Dr. Juarez. She had an uneventful overnight stay. She is have a feeling of global itching that suspect may be from the anesthesia and will go away with time. She can continue to take Benadryl as needed for this. She will call our office if she continues to have issues in a few days. Otherwise, plan to see her in our office in 2 weeks for wound check. DS: Summary Hospital Course Reason for hospitalization: Observation after outpatient procedure Hospital Course: 56-year-old female admitted for observation after right total knee replacement. Hospitalist was consulted due to type 2 diabetes mellitus. Patient was seen by therapy after surgery and plan on seen them again today prior to discharge. Exercises and postop instructions were reviewed with patient in great detail this morning. Status at Discharge Functional status at discharge: uses cane/walker Overall status at discharge: patient is progressing back to baseline Time Spent with Patient Time attestation: Total time spent providing and/or coordinating discharge services: Time spent: Less than 30 minutes Exam Const: General: comfortable and no acute distress HENMT: Mouth: Yes moist mucous membranes Eyes: General: appearance normal, both eyes and all related structures Neck: Neck: supple and no JVD Resp: Effort & Inspection: normal respiratory effort GI: Inspection: non-distended Skin: General skin exam: normal color and no rashes or lesions noted Neuro: Sensory Exam: normal sensation Extrem: Other: Exam of the right lower extremity reveals a clean and dry surgical dressing. She is able to fully extend the knee to 0? with active range of motion. She denies any numbness or tingling down the leg. She is able to wiggle toes without difficulty. Only mild edema noted to the lower extremity. Neurovascular status unremarkable. Calves negative. Psych: Mental Status: mental status grossly normal DS: Data Data Completed and Pending Labs on day of discharge: Labs from last 24 hours 12/28/21 12/28/21 12/28/21 07:33 05:00 05:00 WBC 13.3 H RBC 3.63 L Hgb 10.6 L D Hct 32.6 L MCV 89.8 MCH 29.2 MCHC 32.5 RDW 14.2 Plt Count 186 MPV 11.0 H Immature Gran % (Auto) 0.5 Neut % (Auto) 86.0 H Lymph % (Auto) 6.9 L [place] % (Auto) 6.5 Eos % (Auto) 0.0 Baso % (Auto) 0.1 L Lymph # (Auto) 0.91 [place] # (Auto) 0.9 H Eos # (Auto) 0.0 Baso # (Auto) 0.0 Abs Immat Gran (auto) 0.07 H Absolute Neuts (auto) 11.4 H Absolute Nucleated RBC 0.0 Nucleated RBC % 0.0 Sodium 140 Potassium 4.9 Chloride 106 Carbon Dioxide 30 Anion Gap 4 L BUN 12 D Creatinine 0.80 Estim Creat Clear Calc 83 Estimated GFR > 60 Glucose 160 H POC Capillary Glucose 141 H Calcium 8.7 12/27/21 12/27/21 12/27/21 21:06 16:56 16:35 WBC RBC Hgb Hct MCV MCH MCHC RDW Plt Count MPV Immature Gran % (Auto) Neut % (Auto) Lymph % (Auto) [place] % (Auto) Eos % (Auto) Baso % (Auto) Lymph # (Auto) [place] # (Auto) Eos # (Auto) Baso # (Auto) Abs Immat Gran (auto) Absolute Neuts (auto) Absolute Nucleated RBC Nucleated RBC % Sodium Potassium Chloride Carbon Dioxide Anion Gap BUN Creatinine Estim Creat Clear Calc Estimated GFR Glucose POC Capillary Glucose 228 H 307 H 309 H Calcium 12/27/21 12:19 WBC RBC Hgb Hct MCV MCH MCHC RDW Plt Count MPV Immature Gran % (Auto) Neut % (Auto) Lymph % (Auto)
[2021-12-28] MEDS: ceFAZolin 2 GM/D5W 50 ML 2 GM/50 ML BAG IVPB (08:08)
[2021-12-28] MEDS: DULoxetine HCL 30 MG CAPSULE.DR PO (08:09)
[2021-12-28] MEDS: DULoxetine HCL 60 MG CAPSULE.DR PO (08:09)
[2021-12-28] MEDS: LORATADINE 10 MG TABLET PO (08:10)
[2021-12-28] MEDS: MULTIVITAMINS THERAPEUTIC TAB (*BKC) 1 TABLET PO (08:10)
[2021-12-28] MEDS: RIVAROXABAN 10 MG TABLET PO (08:10)
[2021-12-28] MEDS: polyethylene glycoL 3350 17 GM POWD.PACK PO (08:10)
[2021-12-28] MEDS: PANTOPRAZOLE 40 MG TABLET PO (08:10)
[2021-12-28] MEDS: SENNA/DOCUSATE SODIUM TABLET 2 TAB PO (08:11)
[2021-12-28] MEDS: OXYBUTYNIN CHLORIDE 5 MG TABLET PO (08:11)
[2021-12-28] MEDS: TRIAMCINOLONE ACET 0.1% CREAM 15 GM TUBE 1 APPLIC TOPICAL (08:12)
--- NOTE | 2021-12-28 09:32 | PM.IMPN ---
Progress Note: A&P Assessment and Plan (1) T2DM (type 2 diabetes mellitus): Code(s): E11.9 - Type 2 diabetes mellitus without complications Status: Acute Assessment and Plan: Insulin Lispro sliding scale, Accu-checks qAc and HS and Hold oral hypoglycemics (2) S/P total knee arthroplasty: Code(s): Z96.659 - Presence of unspecified artificial knee joint Status: Acute Assessment and Plan: Her orthopedic performed surgical intervention on the patient From a medical standpoint patient appears stable. (3) Obesity: Code(s): E66.9 - Obesity, unspecified Status: Acute Assessment and Plan: Provided education Subjective Date/time seen: 12/28/21 09:32 Patient is alert and oriented at bedside. She appears stable for discharge. Will follow from a distance. Review of Systems Review of Systems: All systems reviewed & are unremarkable except as noted in HPI and below Exam Narrative: General: No acute distress. Mental Status: Awake, alert and oriented to person, place, and time with clear speech. Skin: Skin in warm, dry and intact without rashes or lesions. Head: Normocephalic and atraumatic. Eyes: Conjunctivae are clear without exudates or hemorrhage. Sclera is non-icteric. EOM are intact, PERRLA. Ears: The external ear and canal are non-tender and without swelling or discharge. Nose: Nasal mucosa is pink and moist. Septum midline. Nares patent bilaterally. Throat: Oral mucosa pink and moist with good dentition. Tongue midline. Neck: The neck supple without adenopathy. Trachea midline. No JVD. Cardiac: S1 and S2 regular rate and rhythm. No murmurs, gallops, or rubs auscultated. Respiratory: Chest wall symmetric, nontender and without deformity or trauma. Respirations even and unlabored. Lung sounds are clear to auscultation in all lobes bilaterally without wheezes, rhonchi, or rales. Abdominal: Abdomen soft, round and non-tender to palpation. Bowel sounds present and normoactive in all 4 quadrants. Spine: Neck and back with grossly normal curvature, no deformity in appearance or signs of trauma. Extremities: Upper and lower extremities atraumatic without tenderness or deformity. Full range of motion and muscle strength 5/5 to all extremities bilaterally. Right lower extremity dressing in place, appears clean dry and intact Neurological: Full and symmetric motor and light touch sensation bilaterally. Cranial nerves II-XII grossly intact. Objective Data Vital Signs Vital Signs: Vital Signs - 24 hr 12/27/21 10:26 12/27/21 10:40 12/27/21 10:55 Temperature 96.6 F L Pulse Rate 93 90 94 Respiratory Rate 8 L 12 16 Blood Pressure 157/71 H 138/75 140/72 Pulse Oximetry 94 95 96 Oxygen Delivery Simple Face Mask Nasal Cannula Nasal Cannula Oxygen Flow Rate 6 3 3 12/27/21 11:10 12/27/21 11:25 12/27/21 11:40 Temperature Pulse Rate 91 97 88 Respiratory Rate 16 15 16 Blood Pressure 137/69 142/70 H 137/77 Pulse Oximetry 96 98 97 Oxygen Delivery Nasal Cannula Nasal Cannula Nasal Cannula Oxygen Flow Rate 3 2 2 12/27/21 13:32 12/27/21 13:35 12/27/21 12:10 Temperature 97.0 F L Pulse Rate 90 Respiratory Rate 16 Blood Pressure 131/78 Pulse Oximetry 98 Oxygen Delivery Room Air Room Air Oxygen Flow Rate 12/27/21 12:25 12/27/21 12:55 12/27/21 13:55 Temperature 96.8 F L 96.8 F L 96.8 F L Pulse Rate 83 77 91 Respiratory Rate 16 18 18 Blood Pressure 141/64 H 133/90 138/69 Pulse Oximetry 97 96 97 Oxygen Delivery Oxygen Flow Rate 12/27/21 18:00 12/27/21 19:34 12/27/21 20:19 Temperature 97.0 F L 97.3 F L Pulse Rate 97 97 94 Respiratory Rate 16 20 Blood Pressure 144/67 H 114/76 Pulse Oximetry 94 94 93 Oxygen Delivery Room Air Oxygen Flow Rate 12/27/21 22:00 12/27/21 20:00 12/27/21 23:52 Temperature 97.3 F L 97.9 F Pulse Rate 97 91 Respiratory Rate 20 20 Blood Pressure 114/76 126/58 L Pulse Oximetry 94 95 Oxygen Delivery R
[2021-12-28 10:02] VITALS: BP 122/62; PULSE 84; RESP 14; TEMP 36.7; O2SAT 94
[2021-12-28 11:51] LABS: Glucose Point of Care 262 mg/dl (65-105)
== END 2021-12-28 12:15 | disposition home or self-care (01) ==
LOC: ANHSURGERY 07:24 → ANH2MED 12:05
PROVIDERS: PCP Family Medicine; Visit Provider Orthopaedic Surgery
PROC: (CPT 27447; principal; 2021-12-27 07:30)
DX: M17.11 Unilateral primary osteoarthritis, right knee (principal); G89.18 Other acute postprocedural pain; I10 Essential (primary) hypertension; E11.9 Type 2 diabetes mellitus without complications; K21.9 Gastro-esophageal reflux disease without esophagitis; E78.2 Mixed hyperlipidemia; G89.29 Other chronic pain; Z79.891 Long term (current) use of opiate analgesic; Z79.01 Long term (current) use of anticoagulants; E66.9 Obesity, unspecified; Z68.37 Body mass index [BMI] 37.0-37.9, adult
CPT/HCPCS: 27447; 64447; 36415; 73560; 80048; 80307; 82040; 82948; 83036; 85025; 85610; 85730; 86850; 86900; 86901; 87081; 93005; 97110; 97116; 97161; 97165; 97535; A9270; C1713; C1776; J0171; J0690; J1100; J1170; J1200; J1815; J1885; J2250; J2270; J2405; J2704; J2795; J3010; J7030; J7120

== ENCOUNTER 2022-02-23 12:30 | Outpatient (RCR) | payer MEDICARE, SELFPAY ==
--- NOTE | 2022-01-04 15:20 | PTOPEVAL ---
PHYSICAL THERAPY INITIAL EVALUATION. Thank you for referring Ruthie Birch to [facility].? The patient is scheduled to be seen for therapy? 2x/week for 7 weeks. Please review, sign, date and return this plan of care KAREEM. I agree with and certify that the following plan of care is medically necessary. Referring Physician Date Attending Provider: Db Juarez MD *PT Outpatient Evaluation Start: 01/04/22 Evaluation Information Problem Diagnosis R TKA Onset 12/27/21 Subjective Information Pt states she had a TKA on Text:As Reported By Patient. Her main complaint is Family the knee tightness and the swelling in her knee. She states her son helps to move her leg when she cannot. Pt reports she is doing her exercises 3-4 times a day. Pt states prior to surgery her son does all of the cooking and cleaning because she is unable to. Pt states she is disabled. Prior Level of Function Pain Assessment Self Report Pain Assessment Right Knee(s) Reported Pain Level 0 Pain Description Aching,Pressure,Tightness Greatest Pain Intensity 2 Lower Extremity Range of Motion Knee Range of Motion Right Knee Flexion Range of Motion - Active 55 Knee Flexion Range of Motion - Passive 76 Knee Extension Range of Motion - Active -20 Knee Range of Motion Comments L knee active ROM 0-140 Lower Extremity Muscle Strength Testing Gross Lower Extremity Strength - unable to properly perform quat set and SAQ LLE grossly 4+/5 RLE: -30 deg during LAQ - unable to perform active hip flexion in sitting Palpation Assessment Palpation soreness around entire knee region, bruising in posterior knee and along posterior calf Extremity Circumference Assessment Location Right Body Part Knee Circumference Comments Mid Calf L,R: 40, 42cm knee joint line L,R: 40, 44cm supra patellar pole L,R: 51, 53cm Balance Assessment Timed Up and Go Test (TUG) (Seconds) 32 Assistive Devices Walker, Wheeled 5 Time Sit to Stand Time in Seconds 31 5 Time Sit to Stand Comments With use of UEs, unable to Query Text:Normative Data: If Greater complete without UEs, RLE Than 15 Seconds, 74% Increase Risk for placed anteriorly
--- NOTE | 2022-02-23 13:21 | PTOPEVAL ---
PHYSICAL THERAPY PROGRESS REPORT AND DISCHARGE SUMMARY. Thank you for referring Ruthie Birch to [facility].? The patient is to be discharged from skilled therapy services at this time. Please review, sign, date and return this plan of care KAREEM. I agree with and certify that the following plan of care is medically necessary. Referring Physician Date Attending Provider: Db Juarez MD Evaluation Information Diagnosis R TKA Onset 12/27/21 Subjective Information Pt states her knee is doing Query Text:As Reported By Patient/ great. She has been going to [facility] [place] almost daily to exercise. She reports stairs are still challenges. Pt states she now wakes up without pain, which is amazing Pain Assessment Right Knee(s) Reported Pain Level 1 Pain Description Tightness Greatest Pain Intensity 1 Lower Extremity Range of Motion Knee Range of Motion Right Knee Flexion Range of Motion - Active 124 Knee Flexion Range of Motion - Passive 125 Knee Extension Range of Motion - Active 0 Knee Range of Motion Comments L knee active ROM 0-140 Lower Extremity Muscle Strength Testing Gross Lower Extremity Strength L knee flexion/extension 5/5 R knee flexion 5/5 R knee extension 4+/5 Palpation Assessment Palpation mild tenderness noted at lateral joint line, equal patellar mobility Balance Assessment Assistive Devices Walker, Wheeled Comments Initially: 32s with WW 02/23/22: 8s without device 5 Time Sit to Stand 5 Time Sit to Stand Comments Initially: 31s With use of UEs Query Text:Normative Data: If Greater , unable to complete without Than 15 Seconds, 74% Increase Risk for UEs, RLE placed anteriorly Recurrent Falls 02/23/22: 15s without the use of UEs, equal weight distribution Gait Assessment Ambulation Assistive Devices Non Gait Pattern Ataxic Gait Other Gait Observations mild antaglic pattern on the L , equal weight distribution, step length, and stride length 2 Minute Walk 2 Minute Walk Test Comments Initially: 175ft (1.45ft/s) with WW 02/23/22: 505ft (4.2ft/s) without AD Stair Climbing Assessment Stair Climbing Assistive Devices Railings Stair Climbing Comments Single hand rail for balance. Can ascend/descend with a
== END 2022-02-24 08:45 | disposition home or self-care (01) ==
LOC: ANHPT 12:30
PROVIDERS: PCP Family Medicine; Visit Provider Orthopaedic Surgery
DX: Z47.1 Aftercare following joint replacement surgery (principal); Z96.651 Presence of right artificial knee joint
CPT/HCPCS: 97014; 97110; 97112; 97140; 97161; 97530; G0283

== ENCOUNTER 2023-02-09 07:38 | Day surgery (SDC) | payer MEDICARE, SELFPAY ==
[2022-12-29 13:59] VITALS: BMI 38.2
[2023-01-09 14:01] VITALS: BMI 36.6
--- NOTE | 2023-02-08 12:55 | WPDANESEPPF ---
Anes - Initial Pre Proc Eval Procedure: Operation Date: 02/09/23 10:00 Proposed Procedures p Esophagogastroduodenoscopy - Irwin Moralez MD Date/Time: 02/08/23 12:55 Surgeon: Irwin Moralez MD Pre Op Diagnosis: Dysphagia and Gerd Patient Data Age: 57 Gender: F Height: 1.68 m Weight: 103 kg Allergies Allergy/AdvReac Type Severity Reaction Status Date / Time Sulfa (Sulfonamide Allergy Severe Hives / Verified 02/09/23 08:32 Antibiotics) Red Face; airway swelling Sutures Allergy Intermediate Rash Verified 02/09/23 08:32 meperidine Allergy Mild Nausea and Verified 02/09/23 08:32 Vomiting propoxyphene Allergy Mild itching; Verified 02/09/23 08:32 hives Home Medications Medication Instructions Recorded Confirmed Type omega-3 fatty acids-vitamin E 1 cap PO DAILY 10/12/20 02/09/23 History 1,000 mg capsule fluticasone propionate 50 1 spray intranasal Q12H PRN 06/09/22 02/09/23 Rx mcg/actuation nasal Congestion #16 grams spray,suspension blood sugar diagnostic (OneTouch #200 ea 07/12/22 01/03/23 Rx Ultra Test strips) omeprazole 40 mg capsule,delayed 40 mg PO BID #200 caps 08/08/22 02/09/23 Rx release lancets (Accu-Chek Fastclix Lancet #204 ea 08/10/22 01/03/23 Rx Drum) blood-glucose meter (OneTouch #1 ea 09/12/22 01/03/23 Rx Verio Flex Start kit) meclizine 25 mg tablet 25 mg PO BID PRN dizziness #30 tabs 09/19/22 02/09/23 Rx clobetasol 0.05 % topical cream 1 applic topical BID ECZEMA EAR 09/20/22 02/09/23 Rx CANAL 2 weeks #15 grams azelastine 137 mcg (0.1 %) nasal 1 spray intranasal Q12H PRN 11/03/22 02/09/23 Rx spray aerosol Congestion #30 mL duloxetine 30 mg capsule,delayed See Rx Instructions .Route 11/03/22 02/09/23 Rx release .COMPLEX #90 caps duloxetine 60 mg capsule,delayed See Rx Instructions .Route 11/03/22 02/09/23 Rx release .COMPLEX #90 caps metformin 1,000 mg tablet,extended 1,000 mg PO DAILY #90 tabs 11/25/22 02/09/23 Rx release 24hr ropinirole 0.25 mg tablet 0.25 mg PO BID #180 tabs 11/25/22 02/09/23 Rx cetirizine 10 mg tablet 10 mg PO DAILY #90 tabs 12/20/22 02/09/23 Rx atorvastatin 40 mg tablet See Rx Instructions .Route 01/02/23 02/09/23 Rx .COMPLEX #90 tabs oxybutynin chloride 5 mg tablet See Rx Instructions .Route 01/02/23 02/09/23 Rx .COMPLEX #200 tabs montelukast 10 mg tablet See Rx Instructions .Route 01/20/23 02/09/23 Rx .COMPLEX #100 tabs tirzepatide 5 mg/0.5 mL See Rx Instructions .Route 02/03/23 02/09/23 Rx subcutaneous pen injector .COMPLEX #2 mL (Elly) Patient hx anesthesia problems: none Family hx anesthesia problems: none Results Review: All pre-operative results and documents have been reviewed as part of the pre-operative evaluation. [facility] Past Medical History Medical History Adverse reaction to anesthetic agent Allergies Arthritis Benign essential HTN Bilateral hand pain Cellulitis Chronic narcotic use Chronic pain Diabetes Dizziness Encounter for medication management GERD (gastroesophageal reflux disease) Hoarseness Mixed hyperlipidemia Obesity Overactive bladder Right knee DJD Seasonal allergies Urinary frequency Vertigo Vision abnormalities Surgical History Surgical History History of carpal tunnel release of both wrists History of right knee surgery 1981, Dr. Meredith History of shoulder surgery 1981, Dr. Meredith S/P total knee arthroplasty Right knee 12/27/2021 Type 2 diabetes mellitus without complications Family History Family History Father Family history of cardiac disorder Family history of cardiomyopathy Family history of coronary artery disease Mother Family history of malignant neoplasm of uterus Family history of malignant neoplasm of cervix Grandparent Carcinoma of colon Oth
[2023-02-09 08:15] VITALS: BP 123/72; PULSE 77; RESP 20; TEMP 35.9; O2SAT 97
[2023-02-09] MEDS: LACTATED RINGERS 1,000 ML 150 ML IV CONT (08:51)
[2023-02-09 08:55] LABS: Glucose Point of Care 154 mg/dl (65-105)
--- NOTE | 2023-02-09 09:43 | PM.HPGS ---
History of Present Illness History of Present Illness Consent: Risks, benefits, and alternatives have been discussed and questions answered. Patient agrees to proceed with procedure. Chief complaint: Dysphagia and Gerd Narrative: Ruthie Birch is a 57 year old female Who has had difficulty swallowing. Primary it is liquids that seem to go down the wrong way. She has no difficulty with solid food. She has also had distension and a full feeling in her upper abdomen frequently. She has started a new medication, terzepatide, for diabetes and recently has noticed that she gets full easily. She has not however lost weight. She recently also has had a great deal of belching after meals. Review of Systems Review of Systems: All systems reviewed & are unremarkable except as noted in HPI and below PMFSH Past Medical History Medical History Adverse reaction to anesthetic agent Allergies Arthritis Benign essential HTN Bilateral hand pain Cellulitis Chronic narcotic use Chronic pain Diabetes Dizziness Encounter for medication management GERD (gastroesophageal reflux disease) Hoarseness Mixed hyperlipidemia Obesity Overactive bladder Right knee DJD Seasonal allergies Urinary frequency Vertigo Vision abnormalities Surgical History Surgical History History of carpal tunnel release of both wrists History of right knee surgery 1981, Dr. Meredith History of shoulder surgery 1981, Dr. Meredith S/P total knee arthroplasty Right knee 12/27/2021 Type 2 diabetes mellitus without complications Family History Family History Father Family history of cardiac disorder Family history of cardiomyopathy Family history of coronary artery disease Mother Family history of malignant neoplasm of uterus Family history of malignant neoplasm of cervix Grandparent Carcinoma of colon Other Family history of lymphoma Hypertension Malignant neoplasm of prostate Social History Social History Social History: Single Smoking status: Never smoker Second hand tobacco smoke exposure: No Alcohol intake: never Alcohol use details: Occasionally Substance use: never Substance use type: does not use Lack of Transportation: No Lack of Food: Sometimes True Current Housing: I Have Housing Concerned About Future Housing: No Difficulty Paying Gas/Electric Bills: YES Difficulty Paying for Meds: YES Currently Unemployed: No Education: Associate Degree Difficulty w/ Childcare or Family Care: No Living arrangements: alone Additional living arrangements comments: SON Occupation/Education: unemployed Additional occupation/education comments: Disability Gender identity (if verbalized by the patient): Female Sexual Orientation (if Verbalized by the Patient): Straight or Heterosexual Spiritual care concerns: No Meds Home Medications and Allergies Home Medications Medication Instructions Recorded Confirmed Type omega-3 fatty acids-vitamin E 1 cap PO DAILY 10/12/20 02/09/23 History 1,000 mg capsule fluticasone propionate 50 1 spray intranasal Q12H PRN 06/09/22 02/09/23 Rx mcg/actuation nasal Congestion #16 grams spray,suspension blood sugar diagnostic (OneTouch #200 ea 07/12/22 01/03/23 Rx Ultra Test strips) omeprazole 40 mg capsule,delayed 40 mg PO BID #200 caps 08/08/22 02/09/23 Rx release lancets (Accu-Chek Fastclix Lancet #204 ea 08/10/22 01/03/23 Rx Drum) blood-glucose meter (OneTouch #1 ea 09/12/22 01/03/23 Rx Verio Flex Start kit) meclizine 25 mg tablet 25 mg PO BID PRN dizziness #30 tabs 09/19/22 02/09/23 Rx clobetasol 0.05 % topical cream 1 applic topical BID ECZEMA EAR 09/20/22 02/09/23 Rx CANAL 2 weeks #15 grams azelastine 137 mcg (0.1 %) nasal
[2023-02-09 10:31] VITALS: BP 118/73; PULSE 72; RESP 16; O2SAT 99
--- NOTE | 2023-02-09 10:37 | WPDANESPN ---
Anes - Prog Note Post-Op Date/Time: 02/09/23 10:37 Cardiovascular status: normal Respiratory status: normal Airway patency: baseline Mental status: baseline Post-Op hydration status: normal Vital Signs: Last Vital Signs Temp 35.9 C L 02/09/23 08:15 Pulse 72 02/09/23 10:31 Resp 16 02/09/23 10:31 BP 118/73 02/09/23 10:31 Pulse Ox 99 02/09/23 10:31 O2 Del Method Room Air 02/09/23 10:31 Pain Score (VAS): 0 I/O: Intake & Output 02/08/23 02/09/23 02/09/23 23:59 07:59 15:59 Intake Total 200 Balance 200 02/09/23 08:50 POC Capillary Glucose 154 H Post-procedural complaints: none Patient Feedback: Patient satisfied with anesthetic care.
[2023-02-09 10:41] VITALS: BP 114/59; PULSE 73; RESP 18; O2SAT 99
[2023-02-09 10:51] VITALS: BP 119/72; PULSE 72; RESP 18; O2SAT 100
== END 2023-02-09 11:20 | disposition home or self-care (01) ==
PROVIDERS: PCP Family Medicine; Visit Provider Internal Medicine Gastroenterology
PROC: 0DJ08ZZ Inspection of Upper Intestinal Tract, Via Natural or Artificial Opening Endoscopic (ICD-10-PCS; CPT 43235; principal; 2023-02-09 10:00)
DX: K21.9 Gastro-esophageal reflux disease without esophagitis (principal)
CPT/HCPCS: 43251; 43239

== ENCOUNTER 2023-02-09 09:00 | Outpatient (NON) | payer MEDICARE, SELFPAY | END 2023-02-09 09:01 | disposition home or self-care (01) | PROVIDERS: PCP Family Medicine; Visit Provider Internal Medicine Gastroenterology | DX: K21.9 Gastro-esophageal reflux disease without esophagitis (principal); K31.7 Polyp of stomach and duodenum | CPT/HCPCS: 88305 ==

== ENCOUNTER 2023-04-29 09:42 | Emergency (ER) | payer MEDICARE, SELFPAY ==
[2023-04-29] VITALS (14 sets, daily range): BP systolic 138–160; BP diastolic 66–88; PULSE 74–85; RESP 17–25; TEMP 36.3; O2SAT 94–99
--- NOTE | ~2023-04-29 | XR_ITS ---
EXAMINATION: XR chest 2V 04/29/2023 10:18 INDICATION: Chest pain PROCEDURE: 2 view chest COMPARISON: 09/12/2014 FINDINGS: The lungs are clear. The cardiomediastinal silhouette is within normal limits. There are no pleural effusions. There is no pneumothorax suspected. IMPRESSION: 1: NO ACUTE CARDIOPULMONARY DISEASE. Reviewed, dictated and finalized at location A.
--- NOTE | 2023-04-29 09:47 | ECG_ITS ---
Measurements Intervals [place] Rate: 76 P: 35 MN: 159 QRS: 7 QRSD: 94 T: 31 QT: 360 QTc: 406 Interpretive Statements SINUS RHYTHM BASELINE ARTIFACT- I, II, AVR NORMAL ECG COMPARED TO ECG 12/15/2021 09:27:00 NO SIGNIFICANT CHANGES Electronically Signed On 04-29-2023 10:48:29 CDT by Ata Mckeon D.O.
[2023-04-29] MEDS: ASPIRIN 81 MG CHEWABLE TABLET 324 MG PO (09:57)
[2023-04-29 10:09] LABS: Basophils Percent Auto 0.2 % (0.2-1.2); Eosinophils Absolute Auto 0.1 K/mm3 (0-0.3); Eosinophils Percent Auto 0.5 % (0-4.4); Hematocrit 37.2 % (37.0-47.0); Hemoglobin 12.1 g/dL (12.0-15.0); Immature Granulocyte Absolute 0.04 K/mm3 (0.00-0.031); Immature Granulocyte Percent A 0.4 % (0-0.5); Lymphocytes Absolute Auto 1.21 K/mm3 (0.9-3.2); Lymphocytes Percent Auto 12.3 % (18.3-44.2); Mean Corpuscular HGB Conc 32.5 g/dl (32-36); Mean Corpuscular Hemoglobin 28.1 pg (26-34); Mean Corpuscular Volume 86.5 fl (80-100); Monocytes Absolute Auto 0.5 K/mm3 (0.1-0.6); Monocytes Percent Auto 5.3 % (2.6-8.5); Neutrophils Percent Auto 81.3 % (45.5-73.1); Platelet Count Result 194 k/mm3 (150-375); Red Cell Distribution Width 13.8 % (11.5-14.5); White Blood Count 9.8 K/mm3 (4.5-10.0)
[2023-04-29 10:18] LABS: Alanine Aminotransferase 23 U/L (6-35); Albumin Level 3.9 g/dL (3.5-5.1); Alkaline Phosphatase 150 U/L (38-126); Anion Gap 7 mmol/L (8-16); Aspartate Amino Transferase 26 U/L (14-36); Bilirubin,Total 0.6 mg/dL (0.2-1.3); Blood Urea Nitrogen 14 mg/dL (7-17); Calcium 9.1 mg/dL (8.4-10.2); Carbon Dioxide 27 mmol/L (22-30); Chloride 101 mmol/L (98-107); Estimated CRCL calculation 104 ml/min; Estimated Glomerular Filt Rate > 60; Glucose 193 mg/dL (65-110); Lipase 111 U/L (23-300); Potassium 4.3 mmol/L (3.4-5.0); Sodium 135 mmol/L (137-145)
[2023-04-29 10:20] LABS: INR 0.9; Partial Thromboplastin Time 30.5 SECONDS (22.3-36.8); Prothrombin Time 12.4 Seconds (11.1-14.7)
[2023-04-29 10:30] LABS: Troponin I < 0.012 ng/mL (0.000-0.034)
--- NOTE | 2023-04-29 10:52 | ED.CHESTPAIN ---
HPI - Chest Pain General Chief Complaint: Chest Pain Stated Complaint: Chest Pain Time Seen by Provider: 04/29/23 09:47 History of Present Illness HPI narrative: 57-year-old female to the ED for evaluation of chest pressure which radiates from her neck to her epigastrium. Patient states that symptoms started last night when she was sleeping. Patient denies any associated shortness of breath. Patient has no prior history of coronary disease. Patient did have a negative stress test approximately 2 years ago. Patient does report prior diagnosis of hiatal hernia and gastric reflux. Related Data Home Medications Medication Instructions Recorded Confirmed omega-3 fatty acids-vitamin E 1 cap PO DAILY 10/12/20 03/31/23 1,000 mg capsule eluxadoline 100 mg tablet (Viberzi) 100 mg PO BID 03/31/23 03/31/23 mirabegron 25 mg tablet,extended 25 mg PO DAILY 03/31/23 03/31/23 release 24 hr (Myrbetriq) Allergies Allergy/AdvReac Type Severity Reaction Status Date / Time Sulfa (Sulfonamide Allergy Severe Hives / Verified 04/29/23 10:07 Antibiotics) Red Face; airway swelling Sutures Allergy Intermediate Rash Verified 04/29/23 10:07 meperidine Allergy Mild Nausea and Verified 04/29/23 10:07 Vomiting propoxyphene Allergy Mild itching; Verified 04/29/23 10:07 hives Review of Systems Review of Systems: All systems reviewed & are unremarkable except as noted in HPI and below PMFSH Past Medical History Medical History Adverse reaction to anesthetic agent Allergies Arthritis Benign essential HTN Bilateral hand pain Cellulitis Chronic narcotic use Chronic pain Diabetes Dizziness Encounter for medication management GERD (gastroesophageal reflux disease) Hoarseness Mixed hyperlipidemia Obesity Overactive bladder Right knee DJD Seasonal allergies Urinary frequency Vertigo Vision abnormalities Surgical History Surgical History History of carpal tunnel release of both wrists History of right knee surgery 1981, Dr. Meredith History of shoulder surgery 1981, Dr. Meredith S/P total knee arthroplasty Right knee 12/27/2021 Type 2 diabetes mellitus without complications Family History Family History Father Family history of cardiac disorder Family history of cardiomyopathy Family history of coronary artery disease Mother Family history of malignant neoplasm of uterus Family history of malignant neoplasm of cervix Grandparent Carcinoma of colon Other Family history of lymphoma Hypertension Malignant neoplasm of prostate Social History Social History Social History: Single Smoking status: Never smoker Second hand tobacco smoke exposure: No Alcohol intake: never Alcohol use details: Occasionally Substance use: never Substance use type: does not use Lack of Transportation: No Lack of Food: Sometimes True Current Housing: I Have Housing Concerned About Future Housing: No Difficulty Paying Gas/Electric Bills: YES Difficulty Paying for Meds: YES Currently Unemployed: No Education: Associate Degree Difficulty w/ Childcare or Family Care: No Living arrangements: alone Additional living arrangements comments: SON Occupation/Education: unemployed Additional occupation/education comments: Disability Gender identity (if verbalized by the patient): Female Sexual Orientation (if Verbalized by the Patient): Straight or Heterosexual Spiritual care concerns: No Exam Narrative: APPEARANCE: Well appearing, no pain, no distress, well-nourished. HEAD: normocephalic, atraumatic. EYES: PERRLA/EOMI, conjunctivae clear. NOSE: Normal no drainage EARS:TMS clear with good light reflex. THROAT: Pharynx clear, no exudate. NECK: Suppl
[2023-04-29] MEDS: BELLADONNA ALK/PHENOB ELIX 10 ML, MAG HYDROX/ALUMINUM HYD/SIMETH 30 ML, LIDOCAINE HCL 2... PO (11:03)
[2023-04-29 13:12] LABS: Troponin I < 0.012 ng/mL (0.000-0.034)
== END 2023-04-29 13:48 | disposition home or self-care (01) ==
PROVIDERS: Emergency Provider Emergency Medicine; PCP Family Medicine
DX: R10.13 Epigastric pain (principal); I10 Essential (primary) hypertension; E11.9 Type 2 diabetes mellitus without complications; E78.2 Mixed hyperlipidemia; M17.11 Unilateral primary osteoarthritis, right knee; K21.9 Gastro-esophageal reflux disease without esophagitis; N32.81 Overactive bladder; E66.9 Obesity, unspecified; Z68.35 Body mass index [BMI] 35.0-35.9, adult; Z96.651 Presence of right artificial knee joint; Z79.84 Long term (current) use of oral hypoglycemic drugs
CPT/HCPCS: 36415; 71046; 80053; 83690; 84484; 85025; 85610; 85730; 93005; 99284; A9270

== ENCOUNTER 2023-05-25 07:00 | Outpatient (NON) | payer MEDICARE, SELFPAY | END 2023-05-25 07:01 | disposition home or self-care (01) | PROVIDERS: PCP Family Medicine; Visit Provider Internal Medicine Gastroenterology | DX: Z12.11 Encounter for screening for malignant neoplasm of colon (principal); D12.0 Benign neoplasm of cecum; D12.5 Benign neoplasm of sigmoid colon | CPT/HCPCS: 88305 ==

== ENCOUNTER 2023-05-25 07:28 | Day surgery (SDC) | payer MEDICARE, SELFPAY ==
[2023-05-16 08:02] VITALS: BMI 36.9
[2023-05-23 14:07] VITALS: BMI 37.3
--- NOTE | 2023-05-24 15:14 | PM.HPGS ---
History of Present Illness History of Present Illness Consent: Risks, benefits, and alternatives have been discussed and questions answered. Patient agrees to proceed with procedure. Chief complaint: Noninfective Gastroenteritis and Colitis Narrative: Ruthie Birch is a 57 year old female who is being investigated forchronic diarrhea.? She cannot identify any specific triggers.? This is typically immediately postprandial and at times can finish a meal before running to the bathroom.? She does have fecal incontinence.? Denies any black or bloody stools or abdominal pain with this.? Is a long-term diabetic.? Has been on metformin 1000 mg for quite some time. my office arrange for her to have a fecal elastase test which came back low at 78. she was given a prescription for a pancreatic enzyme supplement but she states that it was prohibitively expensive and has not started it. Review of Systems Review of Systems: All systems reviewed & are unremarkable except as noted in HPI and below PMFSH Past Medical History Medical History Adverse reaction to anesthetic agent Allergies Arthritis Atypical chest pain Benign essential HTN Bilateral hand pain Bloating Cellulitis Chronic diarrhea Chronic narcotic use Chronic pain Diabetes Dizziness Early satiety Encounter for medication management Exocrine pancreatic insufficiency GERD (gastroesophageal reflux disease) Hoarseness Mixed hyperlipidemia Nonerosive esophageal reflux disease Obesity Overactive bladder Right knee DJD Seasonal allergies Urinary frequency Vertigo Vision abnormalities Vomiting Surgical History Surgical History History of carpal tunnel release of both wrists History of right knee surgery 1981, Dr. Meredith History of shoulder surgery 1981, Dr. Meredith S/P total knee arthroplasty Right knee 12/27/2021 Type 2 diabetes mellitus without complications Family History Family History Father Family history of cardiac disorder Family history of cardiomyopathy Family history of coronary artery disease Mother Family history of malignant neoplasm of uterus Family history of malignant neoplasm of cervix Grandparent Carcinoma of colon Other Family history of lymphoma Hypertension Malignant neoplasm of prostate Social History Social History Social History: Single Smoking status: Never smoker Second hand tobacco smoke exposure: No Alcohol intake: current Alcohol use details: rarely Substance use: never Substance use type: does not use Lack of Transportation: No Lack of Food: Sometimes True Current Housing: I Have Housing Concerned About Future Housing: No Difficulty Paying Gas/Electric Bills: YES Difficulty Paying for Meds: YES Currently Unemployed: No Education: Associate Degree Difficulty w/ Childcare or Family Care: No Living arrangements: with family Additional living arrangements comments: SON Occupation/Education: unemployed Additional occupation/education comments: Disability Gender identity (if verbalized by the patient): Female Sexual Orientation (if Verbalized by the Patient): Straight or Heterosexual Spiritual care concerns: No Meds Home Medications and Allergies Home Medications Medication Instructions Recorded Confirmed Type omega-3 fatty acids-vitamin E 1 cap PO DAILY 10/12/20 05/25/23 History 1,000 mg capsule fluticasone propionate 50 1 spray intranasal Q12H PRN 06/09/22 05/25/23 Rx mcg/actuation nasal Congestion #16 grams spray,suspension lancets (Accu-Chek Fastclix Lancet #204 ea 08/10/22 05/25/23 Rx Drum) blood-glucose meter (OneTouch #1 ea 09/12/22 05/25/23 Rx Verio Flex Start kit) meclizine 25 mg tablet 25 mg PO BID PRN dizziness #30 tabs
[2023-05-25 08:20] VITALS: BP 131/99; PULSE 74; RESP 20; TEMP 36.7; O2SAT 99
[2023-05-25 08:29] LABS: Glucose Point of Care 167 mg/dl (65-105)
[2023-05-25] MEDS: LACTATED RINGERS 1,000 ML 150 ML IV CONT (08:30)
--- NOTE | 2023-05-25 09:08 | WPDANESEPPF ---
Anes - Initial Pre Proc Eval Procedure: Operation Date: 05/25/23 09:30 Proposed Procedures p Diagnostic Colonoscopy - Irwin Moralez MD Date/Time: 05/25/23 09:08 Surgeon: Irwin Moralez MD Pre Op Diagnosis: Noninfective Gastroenteritis and Colitis Patient Data Age: 57 Gender: F Height: 1.68 m Weight: 102.1 kg Last Vital Signs Temp 36.7 C 05/25/23 08:20 Pulse 74 05/25/23 08:20 Resp 20 05/25/23 08:20 BP 131/99 H 05/25/23 08:20 Pulse Ox 99 05/25/23 08:20 O2 Del Method Room Air 05/25/23 08:20 Allergies Allergy/AdvReac Type Severity Reaction Status Date / Time Sulfa (Sulfonamide Allergy Severe Hives / Verified 05/25/23 08:13 Antibiotics) Red Face; airway swelling Sutures Allergy Intermediate Rash Verified 05/25/23 08:13 meperidine Allergy Mild Nausea and Verified 05/25/23 08:13 Vomiting propoxyphene Allergy Mild itching; Verified 05/25/23 08:13 hives Home Medications Medication Instructions Recorded Confirmed Type omega-3 fatty acids-vitamin E 1 cap PO DAILY 10/12/20 05/25/23 History 1,000 mg capsule fluticasone propionate 50 1 spray intranasal Q12H PRN 06/09/22 05/25/23 Rx mcg/actuation nasal Congestion #16 grams spray,suspension lancets (Accu-Chek Fastclix Lancet #204 ea 08/10/22 05/25/23 Rx Drum) blood-glucose meter (OneTouch #1 ea 09/12/22 05/25/23 Rx Verio Flex Start kit) meclizine 25 mg tablet 25 mg PO BID PRN dizziness #30 tabs 09/19/22 05/25/23 Rx clobetasol 0.05 % topical cream 1 applic topical BID ECZEMA EAR 09/20/22 05/25/23 Rx CANAL 2 weeks #15 grams azelastine 137 mcg (0.1 %) nasal 1 spray intranasal Q12H PRN 11/03/22 05/25/23 Rx spray aerosol Congestion #30 mL metformin 1,000 mg tablet,extended 1,000 mg PO DAILY #90 tabs 11/25/22 05/25/23 Rx release 24hr ropinirole 0.25 mg tablet 0.25 mg PO BID #180 tabs 11/25/22 05/25/23 Rx cetirizine 10 mg tablet 10 mg PO DAILY #90 tabs 12/20/22 05/25/23 Rx atorvastatin 40 mg tablet See Rx Instructions .Route 01/02/23 05/25/23 Rx .COMPLEX #90 tabs blood sugar diagnostic (OneTouch #200 ea 02/14/23 05/25/23 Rx Ultra Test strips) exenatide microspheres 2 mg/0.85 2 mg (0.85 mL) subcut WEEKLY #10.2 04/03/23 05/25/23 Rx mL subcutaneous auto-injector mL ([employer]) duloxetine 30 mg capsule,delayed See Rx Instructions .Route 04/19/23 05/25/23 Rx release .COMPLEX #100 caps duloxetine 60 mg capsule,delayed See Rx Instructions .Route 04/19/23 05/25/23 Rx release .COMPLEX #100 caps colestipol 1 gram tablet 1 g PO BID #14 tabs 05/11/23 05/25/23 Rx colestipol 1 gram tablet 1 g PO BID #180 tabs 05/11/23 05/25/23 Rx omeprazole 40 mg capsule,delayed 40 mg PO BID #180 caps 05/11/23 05/25/23 Rx release montelukast 10 mg tablet See Rx Instructions .Route .COMPLEX 05/23/23 05/25/23 History (Singulair) oxybutynin chloride 5 mg tablet 5 mg PO DAILY 05/23/23 05/25/23 History khtcjq-bherhagn-htcxwyz 2 cap PO QID 30 days #240 caps 05/24/23 05/25/23 Rx 40,000-126,000-168,000 unit capsule, delay rel (Zenpep) Laboratory Tests 05/25/23 08:26 POC Capillary Glucose 167 H mg/dl (65-105) Patient hx anesthesia problems: post op nausea/vomiting Family hx anesthesia problems: none Results Review: All pre-operative results and documents have been reviewed as part of the pre-operative evaluation. [facility] Past Medical History Medical History Adverse reaction to anesthetic agent Allergies Arthritis Atypical chest pain Benign essential HTN Bilateral hand pain Bloating Cellulitis Chronic diarrhea Chronic narcotic use Chronic pain Diabetes Dizziness Early satiety Encounter for medication management Exocrine pancreatic insufficiency GERD (gastroesophageal reflux disease) Hoarseness Mixed hyperlipidemia Nonerosive esophageal reflux disease Obesity Overactive bladder Right knee DJD Seasonal a
[2023-05-25 10:06] VITALS: BP 134/76; PULSE 68; RESP 16; O2SAT 99
[2023-05-25 10:16] VITALS: BP 137/87; PULSE 69; RESP 18; O2SAT 98
[2023-05-25 10:26] VITALS: BP 138/76; PULSE 58; RESP 16; O2SAT 98
--- NOTE | 2023-05-25 11:26 | WPDANESPN ---
Anes - Prog Note Post-Op Date/Time: 05/25/23 11:26 Cardiovascular status: normal Respiratory status: normal Airway patency: baseline Mental status: baseline Post-Op hydration status: normal Vital Signs: Last Vital Signs Temp 36.7 C 05/25/23 08:20 Pulse 58 L 05/25/23 10:26 Resp 16 05/25/23 10:26 BP 138/76 05/25/23 10:26 Pulse Ox 98 05/25/23 10:26 O2 Del Method Room Air 05/25/23 10:26 Pain Score (VAS): 0 I/O: Intake & Output 05/24/23 05/25/23 05/25/23 23:59 07:59 15:59 Intake Total 700 Balance 700 05/25/23 08:26 POC Capillary Glucose 167 H Patient Feedback: Patient satisfied with anesthetic care.
== END 2023-05-25 10:40 | disposition home or self-care (01) ==
PROVIDERS: PCP Family Medicine; Visit Provider Internal Medicine Gastroenterology
PROC: 0DJD8ZZ Inspection of Lower Intestinal Tract, Via Natural or Artificial Opening Endoscopic (ICD-10-PCS; CPT 45378; principal; 2023-05-25 09:30)
DX: D12.0 Benign neoplasm of cecum (principal); D12.5 Benign neoplasm of sigmoid colon
CPT/HCPCS: 45385; 45380

== ENCOUNTER 2023-05-26 08:44 | Outpatient (CLI) | payer MEDICARE, SELFPAY ==
--- NOTE | ~2023-05-26 | NM_ITS ---
EXAM: NM gastric emptying study DATE: 05/26/2023 13:30 INDICATION: Vomiting, early satiety and gastroesophageal reflux disease. TECHNIQUE: A gastric emptying study was performed using the methodology of [place] LACY, et al. J Nucl Med 2007; 48:568-572. The patient was given a meal consisting of 2 scrambled eggs labeled with 0.992 mCi Tc-99m sulfur colloid, 2 slices of toast, two packages of jam, and approximately 120 mL of water . Simultaneous anterior and posterior 1-min images of the abdomen were obtained with the patient supi ne at multiple time points over a total period of 4 hours. The geometric mean of anterior and posteri or views was determined, and the percentage retention was calculated for each time point. COMPARISON: None. FINDINGS: Gastric retention of the radiotracer-labeled meal was 76%, 41%, and 14% at the 1-hour, 2-hour, and 4- hour time points, respectively. With this technique, apparent rapid gastric emptying is suggested by <30% gastric retention at 1 hour. Delayed gastric emptying is defined by gastric retention of >90% at 1 hour, >60% retention at 2 hours, or >10% retention at 4 hours. IMPRESSION: 1. Normal gastric emptying. Reviewed, dictated and finalized at location A. IMPRESSION: 1. Normal gastric emptying.
== END 2023-05-26 08:45 | disposition home or self-care (01) ==
PROVIDERS: PCP Family Medicine; Visit Provider Nurse Practitioner
DX: R11.10 Vomiting, unspecified (principal); R68.81 Early satiety; R14.0 Abdominal distension (gaseous); K21.9 Gastro-esophageal reflux disease without esophagitis
CPT/HCPCS: 78264; A9541

== ENCOUNTER 2023-05-31 07:40 | Outpatient (CLI) | payer MEDICARE, SELFPAY ==
--- NOTE | ~2023-05-31 | CT_ITS ---
EXAMINATION: CT abdomen wo/w con DATE: 05/31/2023 08:26 INDICATION: Epigastric abdominal pain. TECHNIQUE: Computed tomography (CT) of the abdomen was performed without and with 100 mL Omnipaque 35 0 intravenous contrast. Automated exposure control and iterative reconstruction technique were employ ed. The dose-length product was 2755.80 mGy-cm. COMPARISON: CT abdomen and pelvis 12/27/2011 FINDINGS: The visualized portions of the lung bases demonstrate mild atelectasis. No pleural effusion . There are bilateral breast implants with intracapsular ruptures. The heart size is normal. No peric ardial effusion. The liver, gallbladder, spleen, pancreas, adrenal glands, and kidneys are normal. Th ere are no dilated loops of bowel. There is a small sliding hiatal hernia There are no pathologically enlarged lymph nodes. There is no free intraperitoneal fluid. There is severe lower lumbar spondylos is. IMPRESSION: 1. Small sliding hiatal hernia. 2. Ruptured bilateral breast implants. Reviewed, dictated and finalized at location E.
[2023-05-31 08:19] LABS: Estimated Glomerular Filt Rate > 60
== END 2023-05-31 07:41 | disposition home or self-care (01) ==
LOC: ANHIMG 07:44
PROVIDERS: PCP Family Medicine; Visit Provider Nurse Practitioner
DX: K86.81 Exocrine pancreatic insufficiency (principal); K44.9 Diaphragmatic hernia without obstruction or gangrene; T85.49XA Other mechanical complication of breast prosthesis and implant, initial encounter
CPT/HCPCS: 74170; Q9967

== ENCOUNTER 2023-08-02 09:38 | Outpatient (CLI) | payer MEDICARE, SELFPAY ==
--- NOTE | ~2023-08-02 | XR_ITS ---
MODIFIED ESOPHAGRAM HISTORY: Dysphagia. TECHNIQUE: Modified barium esophagram was performed on 08/02/2023. I administered fluoroscopy and per formed the exam with speech pathologist. Patient was seated for lateral fluoroscopic imaging for ing estion of thin liquids, pudding, solids and quantified amounts, followed by thin liquids in uncontrol led amounts. This was recorded on tape. A single fluoroscopic spot image was also recorded. The DAP f or this procedure was 0.752 Gycm2. The amount of fluoroscopy time used during this procedure was 1.5 minutes. FINDINGS: Oral stage: Adequate function. Pharyngeal stage: Adequate function. Cervical/esophageal stage: Adequate function. IMPRESSION: Patient tolerated regular consistency oral feedings in the upright position. Please homer elate with speech pathologist findings and specific feeding recommendations. Reviewed, dictated and finalized at location A. R TRIMMER IMPRESSION: Patient tolerated regular consistency oral feedings in the upright position. Please correlate with speech pathologist findings and specific feedi ng recommendations.
--- NOTE | ~2023-08-02 | US_ITS ---
US abdomen limited INDICATION: Abnormal liver enzymes. PROCEDURE: Realtime right upper abdominal ultrasound. COMPARISON: No prior studies for comparison. FINDINGS: The pancreas is normal without focal mass or pancreatic ductal dilation. Liver echotexture is increased, consistent with fatty infiltration. There is normal directional flow in the portal ve in. The gallbladder is normal without stones, gallbladder wall thickening or pericholecystic fluid. Comm on bile duct measures 4 mm. No sonographic Martinez's sign. IMPRESSION: 1: No infiltration of the liver. Reviewed, dictated and finalized at location B. LEAK INSPECTOR
--- NOTE | 2023-08-02 09:14 | REHSTMBS ---
Assessment and note entered by Rebecca Marks, COURTESY DRIVER Modified Barium Swallow Evaluation Feeding Type Recommended Oral Food Consistency Regular, Level 7 Liquid Consistency Thin (0) ST Clinical Summary MODIFIED BARIUM SWALLOW STUDY (MBS) This patient was seen for a Modified Barium Swallow study at the request of her physician, Dr. Moralez. Patient reports that she was placed on Mounjaro last July to control her A1C since she is a Type II diabetic, however she began experiencing vomiting and diarrhea and was taken off this medication about six months ago. She stated during that time, she began having a feeling that food and liquid were hanging up in the base of her throat and that she was even becoming choked and/or aspirating on what was hanging up in her throat. This MBS was administered to assess this patient's risk for aspiration and to determine if she would benefit from dietary modifications and/or compensatory strategies. Patient was viewed in the lateral position to the level of C5/C6. She was presented with uncontrolled thin liquid contrast medium per cup, pudding mixed with semi-solid contrast medium per spoon, then large cracker piece and pieces of fruit cocktail, both coated with the semi-solid mixture. She elicited quick swallows with no evidence of penetration or aspiration and no significant pharyngeal residue after each swallow. Results indicate this patient's swallowing skills are within normal limits. She was instructed to cut food into small pieces, take smaller sips and bites, and to tuck chin down (head flexion) when swallowing both foods and liquids. Patient voiced good understanding of recommendations. She is referred back to her physician for further assessment of her complaints. Thank you for this referral.
[2023-08-02 10:43] LABS: Strep Group A RT-PCR NOT DETECTED (Negative)
== END 2023-08-02 09:39 | disposition home or self-care (01) ==
PROVIDERS: Physician Assistant; PCP Family Medicine; Referring Provider Family Medicine; Visit Provider Internal Medicine Gastroenterology
DX: J02.9 Acute pharyngitis, unspecified (principal); R16.0 Hepatomegaly, not elsewhere classified; R74.8 Abnormal levels of other serum enzymes
CPT/HCPCS: 76705; 87651; 92611

== ENCOUNTER 2023-08-10 09:43 | Outpatient (CLI) | payer MEDICARE, SELFPAY ==
--- NOTE | ~2023-08-10 | XR_ITS ---
Right Hand Technique: PA and lateral views were obtained. Clinical History: Fifth digit injury Findings: There is a probable avulsion fracture from the dorsal aspect of the distal portion of the f ifth middle phalanx. No other fracture or dislocation seen. Joint spaces are preserved. Soft tissues are unremarkable. Impression: Probable avulsion fracture which appears to arise from the dorsal aspect of the distal portion of the fifth middle phalanx. Reviewed, dictated and finalized at location M. CAL TERRITORY MANAGER Impression: Probable avulsion fracture which appears to arise from the dorsal aspect of the distal portion of the fifth middle phalanx.
== END 2023-08-10 09:44 | disposition home or self-care (01) ==
LOC: ANHIMG 09:45
PROVIDERS: PCP Family Medicine; Visit Provider Family Medicine
DX: S69.91XA Unspecified injury of right wrist, hand and finger(s), initial encounter (principal); X58.XXXA Exposure to other specified factors, initial encounter
CPT/HCPCS: 73120

== ENCOUNTER 2023-09-19 14:49 | Outpatient (CLI) | payer MEDICARE, SELFPAY ==
--- NOTE | ~2023-09-19 | MR_ITS ---
MRI of the right hand CLINICAL HISTORY: Sprain of fourth and fifth digits TECHNIQUE: Axial T1-weighted and T2 fat-sat images, coronal T1-weighted and T2 fat-sat images, and sa gittal T1-weighted and T2 fat-sat images were acquired. COMPARISON: 11/05/2021 FINDINGS: There is a probable subacute fracture through the distal shaft of the fifth middle phalanx, nondisplaced, with surrounding marrow edema. There is persistent flexion deformity of the fifth PIP joint as compared to prior exam, with probable degenerative change at the fifth PIP joint. There are stable bowstringing appearance of the fifth digit flexor tendon. Remaining osseous structures and joint spaces seen in the hand are unremarkable. Remaining visualized tendons are normal in alignment and morphology. There is a probable small ganglion cyst along the vo lar aspect of the third flexor tendon at the level of the midportion of the proximal phalanx. This me asures 8 mm in maximum diameter. IMPRESSION: Probable subacute fracture of the distal shaft of the fifth middle phalanx. Chronic, stable bowstringing appearance of the fifth digit flexor tendon, compatible with chronic A2 rohan injury, with stable chronic flexion deformity at the fifth PIP joint. Probable mild degenerative change of the fifth PIP joint. Reviewed, dictated and finalized at location . ICATIONS INTERN IMPRESSION: Probable subacute fracture of the distal shaft of the fifth middle phalanx. Chronic, stable bowstringing appearance of the fifth digit flexor tendon, joshua tible with chronic A2 rohan injury, with stable chronic flexion deformity at t he fifth PIP joint. Probable mild degenerative change of the fifth PIP joint.
== END 2023-09-19 14:50 ==
PROVIDERS: PCP Family Medicine; Visit Provider Plastic Surgery
DX: S69.91XA Unspecified injury of right wrist, hand and finger(s), initial encounter (principal)
CPT/HCPCS: 73218

== ENCOUNTER 2023-10-10 06:23 | Outpatient (NON) | payer MEDICARE, SELFPAY ==
[2023-10-11 10:44] LABS: Influenza A QL RT-PCR Negative (Negative); Influenza B QL RT-PCR Negative (Negative); RSV RNA, RT-PCR Negative (Negative); SARS-CoV-2 RNA PCR Negative (Negative)
== END 2023-10-10 07:00 | disposition home or self-care (01) ==
LOC: ANHLAB 10-17 06:23
PROVIDERS: PCP Family Medicine; Visit Provider Physician Assistant
DX: J02.9 Acute pharyngitis, unspecified (principal); Z20.822 Contact with and (suspected) exposure to COVID-19
CPT/HCPCS: 87637

== ENCOUNTER 2023-11-15 13:15 | Outpatient (RCR) | payer MEDICARE, SELFPAY ==
--- NOTE | 2023-10-13 12:16 | OTOPEVAL1 ---
Assessment and note entered by NALINI Kenny/Julia, CHT Evaluation Information 10/13/23 Assessment Status Evaluation Diagnosis [id number] Subjective Information Patient presents s/p right small and ring finger PIP joint stiffness/volar plate tear. This was sustained after a fall on 08/10/23. She presents with PIP extension lag and decreased ability to complete gross gripping tasks without pain. She has modified tasks to use her nondominant hand. Hand MRI 09/19/23: -Probable subacute fracture of the distal shaft of the fifth middle phalanx. -Chronic, stable bowstringing appearance of the fifth digit flexor tendon, compatible with chronic A2 rohan injury, with stable chronic flexion deformity at the fifth PIP joint. -Probable mild degenerative change of the fifth PIP joint. Reported Pain Level Pain Score 0/10 Additional Pain Score Comments No pain at rest. No pain with active ROM. When the finger is bumped the pain increases to 7/10. Assessment OT Clinical Summary Patient referred to OT with right ring and small finger PIP stiffness following a fall 9 weeks ago. She presents with a decline in right/dominant hand use due to residual weakness, stiffness, and pain. Skilled OT indicated for use of modalities, therapeutic exercise, splinting, HEP instruction/ progression, and manual therapy to facilitate optimal functional ROM and strength of her right hand. Plan of Care Interventions Therapeutic Exercise,Manual Therapy,Therapeutic Activities,Check Out for Orthotic/Pr,Paraffin OT Services Indicated Yes Treatment Frequency and 2x/week for 6 visits Duration These treatments will address the objective and functional deficits as defined above. The patient will be advanced safely and appropriately in order for the patient to progress towards his/her prior level of function. Additional exercises will be introduced and as well as a comprehensive home exercise program upon discharge, if needed, ?to ensure carryover of functional gains achieved in the clinic. This treatment plan has been reviewed and agreement upon by the patient.
--- NOTE | 2023-10-13 12:16 | OPREHPOC ---
Outpatient Therapy Plan of Care This is a Multidisciplinary Plan of Care that may contain components documented by all disciplines (PT, OT, and ST.) OT Problem 1 OT Problem #1 Knowledge Deficit OT Goal 1 Goal 1. Patient to be independent with instructed materials. Target Visit 7 OT Problem 2 OT Problem #2 Pain OT Goal 1 Goal 1. Patient to be independent with non-medication pain management. Target Visit 7 OT Problem 3 OT Problem #3 Impaired Range of Motion OT Goal 1 Goal 1. Increase active ROM of the right ring finger PIP joint to 10 degree or less extension lag. 2. Increase active ROM of the right small finger PIP joint to 20 degree or less extension lag. 3. Increase active flexion of the right small finger to less than 2 cm gap between the finger tip and DPC when attempting to make a hook fist. Target Visit 7
--- NOTE | 2023-11-01 10:21 | PCOTNOTE ---
Patient called & cancelled scheduled appointment this date due to illness.
--- NOTE | 2023-11-07 11:43 | PCOTNOTE ---
Patient did not show up for scheduled appointment this date. Called at 11:40 to state she just woke up and missed her alarm.
--- NOTE | 2023-11-15 14:16 | OTOPDC ---
Assessment and note entered by Matthew Oquendo, NALINI/Julia, CHT Evaluation Information Assessment Status Discharge Diagnosis S69.91XA Subjective Information Patient presents s/p right small and ring finger PIP joint stiffness/volar plate tear. She reports improved mobility and strength of the ring and small fingers. She reports she is using that hand to grasp items and is no longer leaving the small finger sticking out when gripping. She is progressing to more resistive putty and noticing it's getting easier. She continues to have an extension lag at the small finger PIP joint. She has been wearing an extension splint on the small finger 3x/day for 30 minutes minimum. Hand MRI 09/19/23: -Probable subacute fracture of the distal shaft of the fifth middle phalanx. -Chronic, stable bowstringing appearance of the fifth digit flexor tendon, compatible with chronic A2 rohan injury, with stable chronic flexion deformity at the fifth PIP joint. -Probable mild degenerative change of the fifth PIP joint. Flexion of digits IV and V have returned to normal limits. Extension of PIP joint of IV improved from -15 degrees to -5 degrees. Extension of PIP joint of V improved from -50 to -45 degrees actively and -20 to -15 passively. 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 (Norm 50 lbs.) Reported Pain Level Pain Score 0: Self Report Additional Pain Score Comments No pain at rest or with exercises today. She reports increased pain, stating 6/10, after crocheting for 1-1.5 hours. Assessment OT Clinical Summary Patient referred to OT with right ring and small finger PIP stiffness following a fall 13 weeks ago . She presents today with improvements in ROM, strength, and functional use. She is compliant with all materials. She has returned to functional limits with ROM and strength with some residual stiffness in PIP extension in digits IV and V on the right hand. She has static splinting for stretching and putty for strengthening and independent with all materials. D/C today with patient independent with HEP. It appears she has reached h
== END 2023-11-15 15:30 | disposition home or self-care (01) ==
LOC: ANHOT 13:15
PROVIDERS: PCP Family Medicine; Visit Provider Plastic Surgery
DX: S69.91XD Unspecified injury of right wrist, hand and finger(s), subsequent encounter (principal)
CPT/HCPCS: 97018; 97110; 97140; 97165; 99199; L3925; L3933

== ENCOUNTER 2023-11-17 21:50 | Emergency (ER) | payer MEDICARE, SELFPAY ==
--- NOTE | ~2023-11-17 | XR_ITS ---
XR hip RT 2V w AP pelvis DATE: 11/17/2023 22:11 INDICATION: Right groin pain TECHNIQUE: AP pelvis. AP and lateral views of the right hip. COMPARISON: None FINDINGS: An IUD overlies the mid pelvis. Degenerative disc disease is noted at L4-5 and particularly L5-S1 Normal alignment at the pubic symphysis and sacroiliac joints. No pelvic fracture or bone destruction is detected. There is chondrocalcinosis at both hip joints. Mild right hip osteoarthritis. No fracture or dislocation, avascular necrosis or bone destruction of the right hip is detected. IMPRESSION: Bilateral hip chondrocalcinosis Mild right hip osteoarthritis Degenerative disc disease at L4-5 and especially L5-S1 Reviewed, dictated and finalized at location A.
[2023-11-17 21:51] VITALS: BP 126/76; PULSE 88; RESP 14; TEMP 36; O2SAT 100
--- NOTE | 2023-11-17 22:25 | ED.GENADULT ---
HPI - General Adult General Chief complaint: Extremity Injury, Lower Stated complaint: left groin pain Time Seen by Provider: 11/17/23 21:56 History of Present Illness HPI narrative: this is a 58-year-old female history of chronic pain presenting for right groin pain. Patient was seen in her primary care physician earlier today and diagnosed with a muscle strain. Patient notes she has increased pain when she moves her leg. patient denies loss of sensation or swelling to the extremity. She has taken tramadol for pain. no trauma, fevers, overlying skin changes, weakness or loss of sensation to the leg. No urinary retention or bowel incontinence. No history of cancer. Patient is disabled due to chronic pain Related Data Home Medications Medication Instructions Recorded Confirmed oxybutynin chloride 5 mg tablet 10 mg PO DAILY 11/16/23 11/17/23 Allergies Allergy/AdvReac Type Severity Reaction Status Date / Time Sulfa (Sulfonamide Allergy Severe Hives / Verified 11/17/23 15:21 Antibiotics) Red Face; airway swelling Sutures Allergy Intermediate Rash Verified 11/17/23 15:21 meperidine Allergy Mild Nausea and Verified 11/17/23 15:21 Vomiting propoxyphene Allergy Mild itching; Verified 11/17/23 15:21 hives metformin AdvReac Intermediate Diarrhea Uncoded 11/17/23 15:21 mounjaro AdvReac Intermediate Vomiting Uncoded 11/17/23 15:21 [facility] Past Medical History Medical History Adverse reaction to anesthetic agent Allergies Arthritis Atypical chest pain Benign essential HTN Bilateral hand pain Bloating Breast implant rupture Cellulitis Chronic diarrhea Chronic narcotic use Chronic pain Diabetes Dizziness Early satiety Encounter for medication management Exocrine pancreatic insufficiency GERD (gastroesophageal reflux disease) Hoarseness Mixed hyperlipidemia Nonerosive esophageal reflux disease Obesity Overactive bladder Right knee DJD Seasonal allergies Urinary frequency Vertigo Vision abnormalities Vomiting Surgical History Surgical History History of carpal tunnel release of both wrists History of right knee surgery 1981, Dr. Meredith History of shoulder surgery 1981, Dr. Meredith S/P total knee arthroplasty Right knee 12/27/2021 Type 2 diabetes mellitus without complications Family History Family History Father Family history of cardiac disorder Family history of cardiomyopathy Family history of coronary artery disease Mother Family history of malignant neoplasm of uterus Family history of malignant neoplasm of cervix Grandparent Carcinoma of colon Other Family history of lymphoma Hypertension Malignant neoplasm of prostate Social History Social History Social History: Single Smoking status: Never smoker Second hand tobacco smoke exposure: No Alcohol intake: current Alcohol use details: rarely Substance use: never Substance use type: does not use Lack of Transportation: No Lack of Food: Sometimes True Current Housing: I Have Housing Concerned About Future Housing: No Difficulty Paying Gas/Electric Bills: YES Difficulty Paying for Meds: YES Currently Unemployed: No Education: Associate Degree Difficulty w/ Childcare or Family Care: No Living arrangements: with family Additional living arrangements comments: SON Occupation/Education: unemployed Additional occupation/education comments: Disability Gender identity (if verbalized by the patient): Female Sexual Orientation (if Verbalized by the Patient): Straight or Heterosexual Spiritual care concerns: No Exam Narrative: APPEARANCE: No apparent distress. Head: atraumatic. EYES: EOMI, NOSE: Atraumatic NECK: Trachea midline RESPIRATORY: No in
[2023-11-17] MEDS: ACETAMINOPHEN 500 MG TABLET 1000 MG PO (22:44)
[2023-11-17] MEDS: diazePAM INJ (*CRX) 10 MG/2 ML SYRINGE 5 MG IM (22:45)
[2023-11-17] MEDS: KETOROLAC 15 MG/ML VIAL (*BKC) IV PUSH (22:45)
--- NOTE | 2023-11-17 23:03 | PC.NURSE ---
Report received from BERTRAM Clements. Assumed care of patient at this time.
[2023-11-17 23:14] VITALS: PULSE 83; RESP 17; O2SAT 96
== END 2023-11-17 23:27 | disposition home or self-care (01) ==
PROVIDERS: Emergency Provider Emergency Medicine; PCP Family Medicine
DX: R10.31 Right lower quadrant pain (principal); I10 Essential (primary) hypertension; E11.9 Type 2 diabetes mellitus without complications; E78.2 Mixed hyperlipidemia; N32.81 Overactive bladder; K21.9 Gastro-esophageal reflux disease without esophagitis; K86.81 Exocrine pancreatic insufficiency; M19.90 Unspecified osteoarthritis, unspecified site; M17.11 Unilateral primary osteoarthritis, right knee; E66.9 Obesity, unspecified; Z68.37 Body mass index [BMI] 37.0-37.9, adult; Z96.651 Presence of right artificial knee joint; Z79.4 Long term (current) use of insulin; M11.252 Other chondrocalcinosis, left hip; M11.251 Other chondrocalcinosis, right hip; M16.11 Unilateral primary osteoarthritis, right hip; M51.36 Other intervertebral disc degeneration, lumbar region; M51.37 Other intervertebral disc degeneration, lumbosacral region
CPT/HCPCS: 73502; 96372; 96374; 99284; A9270; J1885; J3360

== ENCOUNTER 2023-12-05 10:45 | Outpatient (RCR) | payer MEDICARE, SELFPAY ==
[2023-11-28 13:06] VITALS: BMI 36.9
[2023-11-28 13:25] VITALS: BMI 36.9
== END 2024-02-12 10:41 | disposition home or self-care (01) ==
LOC: ANHDMC 10:45
PROVIDERS: PCP Family Medicine; Visit Provider Physician Assistant
DX: E11.65 Type 2 diabetes mellitus with hyperglycemia (principal); Z71.3 Dietary counseling and surveillance; Z71.89 Other specified counseling
CPT/HCPCS: 97802; G0108

== ENCOUNTER 2024-12-14 02:12 | Emergency (ER) | payer MEDICARE, SELFPAY ==
--- OUTSIDE RECORDS SUMMARY | 2024-12-14 02:14 | XMS_ITS | Encounter Summary ---
Author Organization [facility] Address [address] [place] [address] Care Team Providers Care Clerical Specialist Name Role Phone Sylvester Eason MD Primary Care Provider [phone] Encounter Details Date Type Department Care Team (Late st Contact Info) Description 03/06/2007 Outpatient Historical [facility] Maternal and Ground [address] [place] [address] Dioni Silva MD NO ADDRESS ON FILE Social History Tobacco Use Types Packs/Day Years Used Date Smoking Tobacco: Never Assessed Comments Unknown Sex and Gender Information Value Date Recorded Sex Assigned at Not on file Legal Sex Female 4:59 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
--- OUTSIDE RECORDS SUMMARY | 2024-12-14 02:14 | XMS_ITS | Clinical Summary ---
Author Organization [facility] Address [address] [place] [address] Care Team Providers Care Welt Pocket Machine Operator Name Role Phone Demario Hazel MD Primary Care Provider [phone] Source Comments [facility] Affiliates and Associated Physician Practices is amultiple site organization consisting of ambulatory clinics and hospital sitesin [place], [place], [place] and [place]. This disclosure is being madepursuant to the Care Everywhere program and may not contain all information available regarding this patient. Last updated 18.[facility] Allergies Active Allergy Reactions Criticality Noted Date Comments Meperidine Anaphylaxis High 10/16/2013 Propoxyphene N-Apap Anaphylaxis High 10/16/2013 Sulfa Drugs Anaphylaxis High 10/16/2013 Active Problems Problem Noted Date Diagnosed Date Sprain of rotator cuff capsule 11/13/2013 Social History Tobacco Use Types Packs/Day Years Used Date Smoking Tobacco: Never Smokeless Tobacco: Never Alcohol Use Standard Drinks/Week Comments No 0 (1 standard drink = 0.6 oz pur e alcohol) Comments Unknown Sex and Gender Information Value Date Recorded Sex Assigned at Not on file Legal Sex Female 6:18 PM RECONCILEMENT CLERK Gender Identity Not on file Sexual Orientation Not on file Last Filed Vital Signs Vital Sign Reading Time Taken Comments Blood Pressure 138/74 01/22/2014 8:44 AM CDT Pulse 95 10/31/2013 11:50 AM CDT Temperature 36.7 C (98 F) 01/22/2014 8:44 AM CDT Respiratory Rate 16 10/31/2013 11:10 AM CDT Oxygen Saturation 94% 10/31/2013 12:05 PM CDT Inhaled Oxygen Concentration - - Weight 112.5 kg (248 lb) 06/25/2014 8:52 AM RECONCILEMENT CLERK Height 170.2 cm (5' 7 ) 06/25/2014 8:52 AM RECONCILEMENT CLERK Body Mass Index 38.84 06/25/2014 8:52 AM RECONCILEMENT CLERK Plan of Treatment Health Maintenance Due Date Last Done Comments COLOGUARD (AGES 45-75) - COL ON CA SCREENING 1964 COLON MONITORING 1964 COLONOSCOPY - COLON CA SCREENING 1964 CT COLONOGRAPHY - COLON CA SCREENING 1964 Colorectal Cancer Screening 1964 FIT - COLON CA SCREENING 1964 FLEX SIG - COLON CA SCREENING 1964 LIPID TESTING 1964 MAMMOGRAM 1964 PAP SMEAR 1964 HIV SCREENING 1979 HEPATITIS C SCREENING 06/12/1982 DTAP/TDAP/TD VACCINES (1 - Tdap) 1983 PNEUMOCOCCAL VACCINE 50+ (1 of 1 - PCV) 2014 ZOSTER VACCINE (1 of 2) 2014 COVID-19 VACCINE (1 - 2023-2 5 season) 2024 DEPRESSION SCREENING 08/07/2024 MEDICARE AWV CALENDAR YEAR 2024 INFLUENZA VACCINE (Season Ended) 2025 Respiratory Syncytial Virus (RSV) Vaccine Pt: or over 60 yrs (1 - 1-dose 75+ series) 2039 HEPATITIS B VACCINE Aged Out No longe r eligible based on patient's age to complete this topic HIB VACCINE Aged Out No longer eligi ble based on patient's age to complete this topic HPV VACCINE Aged Out No longer eligi ble based on patient's age to complete this topic MENINGOCOCCAL (Group B) VACC INE SHARED DECISION-MAKING Aged Out No longer eligibl e based on patient's age to complete this topic MENINGOCOCCAL GROUPS A/C/Y/W VACCINE Aged Out No longer eligible b ased on patient's age to complete this topic Insurance [facility] MANAGED MEDICARE ADV [facility] MANAGED MEDICARE ADV Care Teams Welt Pocket Machine Operator Relationship Specialty Start Date End Date Demario Hazel MD [address] [place] [id number] PCP - General 05/28/14
--- OUTSIDE RECORDS SUMMARY | 2024-12-14 02:14 | XMS_ITS | Referral Summary ---
Author Organization [facility] [address] Address [address] [place] [address] Care Team Providers Care Crate Liner Name Role Phone Jami Stoll MD Primary Care Provider Allergies Active Allergy Reactions Criticality Noted Date Comments Meperidine Anaphylaxis High 10/16/2013 Propoxyphene Anaphylaxis High 10/16/2013 Sulfa (Sulfonamide Antibiotics) Anaphylaxis High 07/2014 Social History Tobacco Use Types Packs/Day Years Used Date Smoking Tobacco: Never Assessed Personal Safety Answer Date Recorded Getting School Help Needed Not on file 10/20 Comments Unknown Sex and Gender Information Value Date Recorded Sex Assigned at Not on file Legal Sex Female 7:07 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 MDCR HMO REF Care Teams Crate Liner Relationship Specialty Start Date End Date Jami Stoll MD [address] [facility] [address] [place] [address] PCP - General Family Medicine 10/13/20
--- OUTSIDE RECORDS SUMMARY | 2024-12-14 02:14 | XMS_ITS | Encounter Summary ---
Author Organization [employer] Address 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
--- OUTSIDE RECORDS SUMMARY | 2024-12-14 02:14 | XMS_ITS | Clinical Summary ---
Author Organization [employer] [facility] Address [address] [place] [address] Phone Care Team Providers Care Programming Development Project Manager Name Role Phone Jami Stoll MD Primary Care Provider [phone] Allergies Active Allergy Reactions Criticality Noted Date Comments Meperidine Vomiting,nausea 10/29/2020 Propoxyphene Hives,Itching 10/29/2020 Sulfa Antibiotics Hives 10/29/2020 Medications atorvastatin (LIPITOR) 40 MG tablet 1 Active azelastine (ASTELIN) 0.1 % nasal spray USE 1 SPRAY IN EACH NOSTRIL EVERY 12 HOURS 1 Active Diclofenac Sodium 1 % gel APPLY 4 GRAMS TO SINGKE KNEE FOUR TIMES DAILY 1 Active diclofenac (VOLTAREN) 50 MG EC tablet 1 Active DULoxetine (CYMBALTA) [address] capsule 1 Active DULoxetine (CYMBALTA) [address] capsule 1 Active Jardiance 10 MG tablet 1 Active furosemide (LASIX) 20 MG tablet 1 Active gabapentin (NEURONTIN) 600 MG tablet 1 Active OneTouch Ultra test strip 1 Active Accu-Chek FastClix Lancets misc 1 Active meclizine (ANTIVERT) 12.5 MG tablet TAKE 1 TABLET BY MOUTH THREE TIMES DAILY NEEDED FOR DIZZINESS 1 Active metFORMIN XR 500 MG 24 hr tablet 1 Active omeprazole (PriLOSEC) [address] capsule Take 40 mg by mouth 2 (two) times a day 1 Active promethazine (PHENERGAN) 25 MG tablet TAKE 1 TABLET BY MOUTH THREE TIMES DAILY NEEDED FOR NAUSEA OR VOMITING 1 Active rOPINIRole (REQUIP) 1 MG tablet 1 Active tiZANidine (ZANAFLEX) 4 MG tablet 1 Active oxybutynin (DITROPAN) 5 MG tablet 1 Active Active Problems Problem Noted Date Diagnosed Date Sprain of rotator cuff capsule 11/13/2013 Family History Medical History Relation Comments Cardiomyopathy Father Coronary artery disease Father Cervical cancer Mother Uterine cancer Mother Relation Status Comments Father Mother Social History Tobacco Use Types Packs/Day Years Used Date Smoking Tobacco: Never Smokeless Tobacco: Never Alcohol Use Standard Drinks/Week Comments Never 0 (1 standard drink = 0.6 oz pur e alcohol) AUDIT-C Answer Date Recorded Q1: How often do you have a drink containing alc ohol? Never 10/28/2020 Q2: How many drinks containi ng alcohol do you have on a typical day when you are drinking? Not asked 10/28/2020 Q3: How often do you have six or more drinks on one occasion? Never 10/28/2020 Comments Unknown Sex and Gender Information Value Date Recorded Sex Assigned at Not on file Legal Sex Female 2:[address] [facility] Gender Identity Not on file Sexual Orientation Not on file Last Filed Vital Signs Vital Sign Reading Time Taken Comments Blood Pressure 134/72 10/29/2020 9:29 AM CDT Pulse - - Temperature 36.2 C (97.2 F) 10/29/2020 9:29 AM CDT Respiratory Rate 18 10/29/2020 9:29 AM CDT Oxygen Saturation - - Inhaled Oxygen Concentration - - Weight 105 kg (232 lb) 10/29/2020 9:29 AM CDT Height 167.6 cm (5' 6 ) 10/29/2020 9:29 AM CDT Body Mass Index 37.45 10/29/2020 9:29 AM CDT Plan of Treatment Health Maintenance Due Date Last Done Comments Influenza Vaccine (Season Ended) [address] [place] [address] [place] [address] MEDICARE ADVANTAGE Care Teams Programming Development Project Manager Relationship Specialty Start Date End Date Jami Stoll MD [address] [facility] [address] [facility] [address] [place] [address] PCP - General Internal Medicine 10/15/20
--- OUTSIDE RECORDS SUMMARY | 2024-12-14 02:14 | XMS_ITS | Encounter Summary ---
Author Organization [employer] Address 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
--- OUTSIDE RECORDS SUMMARY | 2024-12-14 02:14 | XMS_ITS | Encounter Summary ---
Author Organization [employer] Address [address] [place] [address] Care Team Providers Care Lift Builder Whole Name Role Phone Sylvester Eason MD Primary Care Provider [phone] Encounter Details Date Type Department Care Team (Latest Contact Info) Description 04/23/2007 [facility] Gunnar Wong MD [address] [place] [address] Elderly Multigravida with Antepartum Condition or Complication (Primary Dx) Social History Tobacco Use Types Packs/Day Years Used Date Smoking Tobacco: Never Assessed Comments Unknown Sex and Gender Information Value Date Recorded Sex Assigned at Not on file 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
--- OUTSIDE RECORDS SUMMARY | 2024-12-14 02:14 | XMS_ITS | Clinical Summary ---
Author Organization [facility] [address] Address [address] [place] [address] Care Team Providers Care Rag Room Supervisor Name Role Phone Jami Stoll MD Primary [...] on file Legal Sex Female 7:07 PM NUCLEAR PHYSICIST Gender Identity Not on file Sexual Orientation Not on file Plan of Treatment Not on file Insurance [facility] MD[facility] HMO [facility] MED[facility] Address[id number] [place] [address] Care Teams Rag Room Supervisor Relationship Specialty Start Date End Date Jami Stoll MD [address] [facility] [address] [place] [address] PCP - General Family Medicine 10/13/20
--- OUTSIDE RECORDS SUMMARY | 2024-12-14 02:14 | XMS_ITS | Encounter Summary ---
Author Organization [employer] Address 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
--- OUTSIDE RECORDS SUMMARY | 2024-12-14 02:14 | XMS_ITS | Encounter Summary ---
Author Organization [employer] Address 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
--- OUTSIDE RECORDS SUMMARY | 2024-12-14 02:14 | XMS_ITS | Encounter Summary ---
Author Organization [employer] Address 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
--- OUTSIDE RECORDS SUMMARY | 2024-12-14 02:14 | XMS_ITS | Clinical Summary ---
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 Gender Identity Not on file Sexual Orientation Not on file Plan of Treatment Health Maintenance Due Date Last Done Comments DTAP/TDAP/TD VACCINES (1 - Tdap) 1983 HPV/Cotest (21-29) 1985 CERVICAL CANCER SCREENING 1994 HPV/Cotest (30-65) 1994 PAP SMEAR 1994 BREAST CANCER SCREENING 2004 COLORECTAL SCREENING 2009 Colorectal Cancer Screening 2009 FIT-DNA Q 3 years 2009 FIT/FOBT Q 1 year 2009 Flex Sig/CT Colonography Q 5 years 2009 ZOSTER VACCINE (1 of 2) 2014 INFLUENZA VACCINE (#1) 2024 RSV VACCINE (60+ or ) (1 - 1-dose 75+ series) 2039 HEPATITIS B VACCINES Aged Out No long er eligible based on patient's age to complete this topic Insurance [facility] [id number] [facility] [id number] Care Teams Manager Client Relationship Specialty Start Date End Date Sylvester Eason MD [address] [facility] [address] [place] [address] PCP - General Family Practice 12/03/20
[2024-12-14 02:16] VITALS: BP 136/69; PULSE 85; RESP 18; TEMP 36.6; O2SAT 98
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
--- NOTE | 2024-12-14 02:51 | PC.NURSE ---
per vorb by edp dr. cooley patient to receive toradol IM instead of toradol IVPUSH
--- OUTSIDE RECORDS SUMMARY | 2024-12-14 02:56 | XMS_ITS | Encounter Summary ---
Author Organization [employer] Address 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
--- OUTSIDE RECORDS SUMMARY | 2024-12-14 02:56 | XMS_ITS | Encounter Summary ---
Author Organization [employer] Address 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
--- OUTSIDE RECORDS SUMMARY | 2024-12-14 02:56 | XMS_ITS | Clinical Summary ---
Author Organization [facility] [employer] Address [address] [facility] [place] [address] Care Team Providers Care Mobile Application Engineer Name Role Phone Demario Hazel MD Primary Care Provider [phone] Source Comments [facility] Affiliates and Associated Physician Practices is amultiple site organization consisting of ambulatory clinics and hospital sitesin [place], [place], [place] and [place]. This disclosure is being madepursuant to the Care Everywhere program and may not contain all information available regarding this patient. Last updated 18.[facility] [employer] Allergies Active Allergy Reactions Criticality Noted Date [...] on file Legal Sex Female 6:18 PM FIRE CREW SPECIALIST Gender Identity Not on file Sexual Orientation [...] 112.5 kg (248 lb) 06/25/2014 8:52 AM FIRE CREW SPECIALIST Height 170.2 cm (5' 7 ) 06/25/2014 8:52 AM FIRE CREW SPECIALIST Body Mass Index 38.84 06/25/2014 8:52 AM FIRE CREW SPECIALIST Plan of Treatment Health Maintenance Due Date [...] age to complete this topic Insurance [facility] MANAGED MEDICARE ADV [facility] MANAGED MEDICARE ADV Care Teams Mobile Application Engineer Relationship Specialty Start Date End Date Demario Hazel MD [address] [place] [phone] PCP - General 05/28/14
--- OUTSIDE RECORDS SUMMARY | 2024-12-14 02:56 | XMS_ITS | Encounter Summary ---
Author Organization [employer] Address [address] [place] [address] Care Team Providers Care Hardness Tester Name Role Phone Sylvester Eason MD Primary Care Provider [phone] Encounter Details Date Type Department Care Team (Latest Contact Info) Description 04/23/2007 [facility]patient [facility] Gunnar Wong MD [address] [place] [address] Elderly Multigravida with Antepartum Condition or Complication (Primary Dx) Social History Tobacco Use Types Packs/Day Years Used Date Smoking Tobacco: Never Assessed Comments Unknown Sex and Gender Information Value Date Recorded Sex Assigned at Not on file 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
--- OUTSIDE RECORDS SUMMARY | 2024-12-14 02:56 | XMS_ITS | Encounter Summary ---
Author Organization [employer] Address 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
--- OUTSIDE RECORDS SUMMARY | 2024-12-14 02:56 | XMS_ITS | Encounter Summary ---
Author Organization [employer] Address [address] [place] [address] Care Team Providers Care Medicaid Specialist Name Role Phone Sylvester Eason MD Primary Care Provider [phone] Encounter Details Date Type Department Care Team (Late st Contact Info) Description 04/24/2007 Outpatient Historical [facility] Maternal and Ground Floor [address] [place] [address] Jeromy Muse MD NO ADDRESS ON FILE Social History Tobacco Use Types Packs/Day Years Used Date Smoking Tobacco: Never Assessed Comments Unknown Sex and Gender Information Value Date Recorded Sex Assigned at Not on file 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
--- OUTSIDE RECORDS SUMMARY | 2024-12-14 02:56 | XMS_ITS | Clinical Summary ---
Author Organization [facility] [employer] [employer] Address [address] [place] [address] Phone Care Team Providers Care House Wirer Name Role Phone Jami Stoll MD Primary Care Provider [phone] Allergies Active Allergy Reactions Criticality Noted Date [...] on file Legal Sex Female 2:26 PM [facility] Gender Identity Not on file [...] Comments Influenza Vaccine (Season Ended) [address] [place] [address] MEDICARE ADVANTAGE Care Teams House Wirer Relationship Specialty Start Date End Date Jami Stoll MD [address] [facility] [address] [facility] 120 [place] [address] PCP - General Internal Medicine 10/15/20
--- OUTSIDE RECORDS SUMMARY | 2024-12-14 02:56 | XMS_ITS | Clinical Summary ---
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
--- OUTSIDE RECORDS SUMMARY | 2024-12-14 02:56 | XMS_ITS | Encounter Summary ---
Author Organization [employer] Address 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
--- OUTSIDE RECORDS SUMMARY | 2024-12-14 02:56 | XMS_ITS | Encounter Summary ---
Author Organization [employer] Address 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
--- OUTSIDE RECORDS SUMMARY | 2024-12-14 02:56 | XMS_ITS | Clinical Summary ---
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
--- OUTSIDE RECORDS SUMMARY | 2024-12-14 02:56 | XMS_ITS | Referral Summary ---
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
[2024-12-14] MEDS: ACETAMINOPHEN 500 MG TABLET 1000 MG PO (03:05)
[2024-12-14] MEDS: methocarbamoL 750 MG TABLET 1500 MG PO (03:05)
[2024-12-14] MEDS: KETOROLAC 15 MG/ML VIAL (*BKC) IM (03:05)
== END 2024-12-14 03:17 | disposition home or self-care (01) ==
PROVIDERS: Emergency Provider Emergency Medicine; PCP Family Medicine
DX: M54.2 Cervicalgia (principal); X58.XXXA Exposure to other specified factors, initial encounter; I10 Essential (primary) hypertension; K21.9 Gastro-esophageal reflux disease without esophagitis; E78.2 Mixed hyperlipidemia
CPT/HCPCS: 96372; 99283; A9270; J1885

== ENCOUNTER 2025-06-13 16:55 | Emergency (ER) | payer MEDICARE, SELFPAY ==
--- NOTE | ~2025-06-13 | CT_ITS ---
EXAMINATION: CT BRAIN W/O DATE: 06/13/2025 18:52 INDICATION: Status post fall. Head injury. TECHNIQUE: Computed tomography (CT) of the head was performed without intravenous contrast. The dose-length product was 605.33 mGy-cm. Automated exposure control and iterative reconstruction technique were employed. COMPARISON: No prior studies for comparison. FINDINGS: Normal brain parenchymal volume for age. Normal braxton-white differentiation. No acute intracranial hemorrhage, infarction, mass or mass effect. No ventriculomegaly or midline shift. Midline sagittal images demonstrate a normal corpus callosum, craniovertebral junction and sella turcica. Basilar cisterns are patent. Paranasal sinuses and mastoids are pneumatized. No depressed skull fractures. Small right frontal scalp hematoma. IMPRESSION: 1. No acute intracranial abnormality. Reviewed, dictated and finalized at location O. GER IMMUNOLOGY
--- NOTE | ~2025-06-13 | CT_ITS ---
EXAMINATION: CT cervical spine wo con DATE: 06/13/2025 18:52 INDICATION: Status post fall. Neck pain. TECHNIQUE: Computed tomography (CT) of the cervical spine was performed without intravenous contrast. The dose-length product was 395.08 mGy-cm. Automated exposure control and iterative reconstruction technique were employed. COMPARISON: None FINDINGS: Lung apices are normal. Straightening of cervical lordosis. There is disc narrowing and endplate degenerative change at C3-4 through C6-7. Craniovertebral junction is normal. Odontoid process is normal. No evidence for perched facet. Spinous processes are normal. No paraspinal soft tissue abn ormality. IMPRESSION: 1. No acute abnormality of the cervical spine. Reviewed, dictated and finalized at location O. N PIPEFITTER
--- NOTE | ~2025-06-13 | XR_ITS ---
EXAMINATION: XR forearm RT 2V, 06/13/2025 17:15 PLUM PACKER HISTORY: fall on glass w/ lacerations COMPARISON: No comparisons available. Findings: No acute fracture or malalignment. No significant degenerative changes. Soft tissues unremarkable. Impression: No acute fracture or malalignment. Reviewed, dictated and finalized at location P. PACKER Impression: No acute fracture or malalignment.
--- OUTSIDE RECORDS SUMMARY | 2025-06-13 16:58 | XMS_ITS | Clinical Summary ---
Author Organization [facility] [employer] Address [address] [place] [address] Phone Care Team Providers Care Surgical Appliance Fitter Name Role Phone Jami Stoll MD Primary Care Provider [phone] Allergies Active Allergy Reactions Criticality Noted Date [...] on file Legal Sex Female 2:26 PM [facility] Gender Identity Not on file Sexual Orientation [...] 9:29 AM CDT Height 167.6 cm (5' 6) 10/29/2020 9:29 AM CDT Body Mass Index 37.45 10/29/2020 9:29 AM CDT Plan of Treatment Health Maintenance Due Date Last Done Comments Influenza Vaccine (#1) [address] [place] [address] MEDICARE ADVANTAGE Care Teams Surgical Appliance Fitter Relationship Specialty Start Date End Date Jami Stoll MD [address] [facility] [address] [facility] 120 [place] [address] PCP - General Internal Medicine 10/15/20
--- OUTSIDE RECORDS SUMMARY | 2025-06-13 16:58 | XMS_ITS | Clinical Summary ---
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
--- OUTSIDE RECORDS SUMMARY | 2025-06-13 16:58 | XMS_ITS | Encounter Summary ---
Author Organization [email or web address] Address 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
--- OUTSIDE RECORDS SUMMARY | 2025-06-13 16:58 | XMS_ITS | Encounter Summary ---
Author Organization [employer] Address 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
--- OUTSIDE RECORDS SUMMARY | 2025-06-13 16:58 | XMS_ITS | Encounter Summary ---
Author Organization [email or web address] Address 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
--- OUTSIDE RECORDS SUMMARY | 2025-06-13 16:58 | XMS_ITS | Encounter Summary ---
Author Organization [employer] Address 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
--- OUTSIDE RECORDS SUMMARY | 2025-06-13 16:58 | XMS_ITS | Encounter Summary ---
Author Organization [employer] Address [address] [place] [address] Care Team Providers Care Warm In Worker Name Role Phone Sylvester Eason MD Primary Care Provider [phone] Encounter Details Date Type Department Care Team (Latest Contact Info) Description 04/23/2007 Outpatient [facility] Gunnar Wong MD [address] [place] [address] Elderly Multigravida with Antepartum Condition or Complication (Primary Dx) Social History Tobacco Use Types Packs/Day Years Used Date Smoking Tobacco: Never Assessed Comments Unknown Sex and Gender Information Value Date Recorded Sex Assigned at Not on file 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
--- OUTSIDE RECORDS SUMMARY | 2025-06-13 16:58 | XMS_ITS | Clinical Summary ---
Author Organization [employer] [address] 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
--- OUTSIDE RECORDS SUMMARY | 2025-06-13 16:58 | XMS_ITS | Encounter Summary ---
Author Organization [employer] Address [address] [place] [address] Care Team Providers Care Judicial Registrar Name Role Phone Sylvester Eason MD Primary Care Provider [phone] Encounter Details Date Type Department Care Team (Late st Contact Info) Description 06/19/2007 Outpatient Historical [facility] Maternal and Ground Floor [address] [place] [address] Jeromy Muse MD NO ADDRESS ON FILE Social History Tobacco Use Types Packs/Day Years Used Date Smoking Tobacco: Never Assessed Comments Unknown Sex and Gender Information Value Date Recorded Sex Assigned at Not on file 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
--- OUTSIDE RECORDS SUMMARY | 2025-06-13 16:58 | XMS_ITS | Encounter Summary ---
Author Organization [employer] Address 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
--- OUTSIDE RECORDS SUMMARY | 2025-06-13 16:58 | XMS_ITS | Clinical Summary ---
Author Organization [facility] Address [address] [facility] [place] [address] Care Team Providers Care Clerical Supervisor Name Role Phone Demario Hazel MD Primary Care Provider [phone] Source Comments [facility] Affiliates and Associated Physician Practices is amultiple site organization consisting of ambulatory clinics and hospital sitesin [place], [place], [place] and [place]. This disclosure is being madepursuant to the Care Everywhere program and may not contain all information available regarding this patient. Last updated 18.[facility] Allergies Active Allergy Reactions Criticality Noted Date [...] on file Legal Sex Female 6:18 PM LONG DISTANCE BILLING OPERATOR Gender Identity Not on file Sexual [...] 112.5 kg (248 lb) 06/25/2014 8:52 AM LONG DISTANCE BILLING OPERATOR Height 170.2 cm (5' 7) 06/25/2014 8:52 AM LONG DISTANCE BILLING OPERATOR Body Mass Index 38.84 06/25/2014 8:52 AM LONG DISTANCE BILLING OPERATOR Plan of Treatment Health Maintenance Due Date Last Done Comments COLOGUARD (AGES 45-75) - COL ON CA SCREENING 1964 COLON MONITORING 1964 COLONOSCOPY - COLON CA SCREENING 1964 CT COLONOGRAPHY - COLON CA SCREENING 1964 Colorectal Cancer Screening 1964 FIT - COLON CA SCREENING 1964 FLEX SIG - COLON CA SCREENING 1964 LIPID TESTING 1964 MAMMOGRAM 1964 HIV SCREENING 1979 HEPATITIS C SCREENING 06/12/1982 DTAP/TDAP/TD VACCINES (1 - Tdap) 1983 PAP SMEAR 1985 PNEUMOCOCCAL VACCINE 50+ (1 of 1 - PCV) 2014 ZOSTER VACCINE (1 of 2) 2014 DEPRESSION SCREENING 08/07/2024 MEDICARE AWV CALENDAR YEAR 2024 COVID-19 VACCINE (1 - 2023-2 5 season) 2025 INFLUENZA VACCINE (#1) 2025 Respiratory Syncytial Virus (RSV) Vaccine Pt: [...] patient's age to complete this topic Insurance [facility] MANAGED MEDICARE ADV [facility] MANAGED MEDICARE ADV Care Teams Clerical Supervisor Relationship Specialty Start Date End Date Demario Hazel MD [address] [place] [id number] PCP - General 05/28/14
[2025-06-13 17:02] VITALS: BP 151/77; PULSE 110; RESP 16; TEMP 36.3; O2SAT 98
--- NOTE | 2025-06-13 17:07 | ED.WOUNDLAC ---
HPI - Wound/Laceration General Chief Complaint: Wound/Laceration <VALERIE Carroll Last Filed: 06/13/25 17:13> Stated Complaint: ARM LAC <VALERIE Carroll Last Filed: 06/13/25 17:13> Time Seen by Provider: 06/13/25 16:55 <VALERIE Carroll Last Filed: 06/13/25 17:13> Focused HPI: Patient is a 59-year-old female who presents the ED with report of a laceration to her right forearm. 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 Hit her head and sustained contusion to R forehead. Denied LOC. Sustained lacerations to R forearm from broken glass. Unsure of tetanus status. Denies any other areas of pain or injury. GENERAL: Well-appearing, well-nourished, and in no acute distress. HEAD: Normocephalic. Small contusion/hematoma to R frontal head. Small amount of bruising. CHEST: Clear to auscultation. ?No respiratory distress. HEART: Regular rate and rhythm.?Radial pulses intact SKIN: Irregular flap laceration to dorsal aspect of R proximal forearm, minimal active bleeding. Small scattered lacerations to forearm, R palm. Sensation intact. NEURO: ?Alert and oriented x3. Patient screened in triage and initial orders placed.? ?Additional care and disposition to be based upon?diagnostic testing and treatment. <VALERIE Carroll Last Filed: 06/13/25 17:13> Source: patient <VALERIE Carroll Last Filed: 06/13/25 17:13> Mode of arrival: ambulatory <VALERIE Carroll Last Filed: 06/13/25 17:13> Limitations: no limitations <VALERIE Carroll Last Filed: 06/13/25 17:13> History of Present Illness HPI narrative: Agree with above HPI. <ERICA Pacheco Last Filed: 06/14/25 02:45> Related Data Allergies/Adverse Reactions: Allergies Allergy/AdvReac Type Severity Reaction Status Date / Time Sulfa (Sulfonamide Allergy Severe Hives / Verified 05/26/25 10:55 Antibiotics) Red Face; airway swelling Sutures Allergy Intermediate Rash Verified 05/26/25 10:55 meperidine Allergy Mild Nausea and Verified 05/26/25 10:55 Vomiting propoxyphene Allergy Mild itching; Verified 05/26/25 10:55 hives metformin AdvReac Intermediate Diarrhea Uncoded 05/26/25 10:55 mounjaro AdvReac Intermediate Vomiting Uncoded 05/26/25 10:55 <Katerin Gonzalez PA-C - Last Filed: 06/13/25 17:13> Review of Systems Review of Systems: All systems reviewed & are unremarkable except as noted in HPI and below <ERICA Pacheco Last Filed: 06/14/25 02:45> [facility] Past Medical History Medical History: Medical History Breast implant rupture Exocrine pancreatic insufficiency Atypical chest pain Nonerosive esophageal reflux disease Bloating Early satiety Vomiting Chronic diarrhea Obesity Chronic narcotic use Diabetes Allergies Bilateral hand pain Encounter for medication management Overactive bladder Adverse reaction to anesthetic agent Seasonal allergies Arthritis Cellulitis Urinary frequency Hoarseness Vision abnormalities Vertigo Dizziness Right knee DJD GERD (gastroesophageal reflux disease) Mixed hyperlipidemia Benign essential HTN Chronic pain <VALERIE Carroll Last Filed: 06/13/25 17:13> Surgical History Surgical History: Surgical History S/P total knee arthroplasty Right knee 12/27/2021 History of carpal tunnel release of both wrists History of shoulder surgery 1981, Dr. Mreedith History of right knee surgery 1981, Dr. Meredith Type 2 diabetes mellitus without complications <VALERIE Carroll Last Filed: 06/13/25 17:13> Family History Family History: Family History Father Family history of cardiac disorder Family history of cardiomyopathy Family history of coronary artery disease Mother Family history of malignant neoplasm of uterus Family history of malignant neoplasm of cervix Grandparent Carcinoma of colon Other Family history of lymphoma Hypertension Malignant neoplasm of prostate <Katerin Gonzalez PA-C - Last Filed: 06/13/25 17:13> Social History Social History: Social History Social History: Single Second hand tobacco smoke exposure: No Alcohol intake: current Alcohol use details: rarely Substance use: never Substance use type: does not use Lack of Transportation: No Lack of Food: Sometimes True Current Housing: I Have Housing Concerned About Future Housing: No Difficulty Paying Gas/Electric Bills: YES Difficulty Paying for Meds: YES Currently Unemployed: No Education: Associate Degree Difficulty w/ Childcare or Family Care: No Living arrangements: with family Additional living arrangements comments: SON Occupation/Education: unemployed Additional occupation/education comments: Disability Gender identity (if verbalized by the patient): Female Sexual Orientation (if Verbalized by the Patient): Straight or Heterosexual Spiritual care concerns: No <Katerin Gonzalez PA-C - Last Filed: 06/13/25 17:13> Exam Narrative: GENERAL: Well-appearing, well-nourished, and in no acute distress. HEAD: Normocephalic, atraumatic. EYES: PERRLA and EOMI. ENT: Nares clear, no rhinorrhea or epistaxis. Mucous membranes moist. Oropharynx without tonsillar hypertrophy exudate or other lesions. Bilateral TMs pearly braxton non-bulging NECK: Supple. No adenopathy or masses. No carotid bruits or JVD CHEST: Clear to auscultation. No respiratory distress. No wheezes rales or rhonchi HEART: Regular rate and rhythm. No murmur heard. Normal peripheral pulses. ABDOMEN: Soft, nontender, nondistended, normal active bowel sounds. EXTREMITIES: Normal range of motion. No edema. Curvilinear, well-circumscribed laceration approximately 3 cm on right proximal forearm. Various superficial abrasions. Three superficial puncture abrasions on right palm. SKIN: Warm, dry, no rash. NEURO: No focal deficits. Alert and oriented x3. PSYCH: Normal mood and affect <ERICA Pacheco - Last Filed: 06/14/25 02:45> Course Vital Signs Vital signs: Vital Signs Temperature 97.4 F L 06/13/25 17:02 Pulse Rate 110 H 06/13/25 17:02 Respiratory Rate 16 06/13/25 17:02 Blood Pressure 151/77 H 06/13/25 17:02 Pulse Oximetry 98 06/13/25 17:02 Temperature 97.7 F 06/13/25 22:55 Pulse Rate 96 06/13/25 22:55 Respiratory Rate 18 06/13/25 22:55 Blood Pressure 144/71 H 06/13/25 22:55 Pulse Oximetry 100 06/13/25 22:55 <VALERIE Carroll Last Filed: 06/13/25 17:13> Vital Signs Temperature 97.4 F L 06/13/25 17:02 Pulse Rate 110 H 06/13/25 17:02 Respiratory Rate 16 06/13/25 17:02 Blood Pressure 151/77 H 06/13/25 17:02 Pulse Oximetry 98 06/13/25 17:02 Temperature 97.7 F 06/13/25 22:55 Pulse Rate 96 06/13/25 22:55 Respiratory Rate 18 06/13/25 22:55 Blood Pressure 144/71 H 06/13/25 22:55 Pulse Oximetry 100 06/13/25 22:55 <ERICA Pacheco Last Filed: 06/14/25 02:45> Procedures Laceration Laceration 1: Date: 06/13/25 <ERICA Pacheco Last Filed: 06/14/25 02:45> Time: 17:36 <ERICA Pacheco Last Filed: 06/14/25 02:45> Site: upper extremity <ERICA Pacheco Last Filed: 06/14/25 02:45> Side (If applicable): left <ERICA Pacheco Last Filed: 06/14/25 02:45> Size (cm): 3.5 <ERICA Pacheco Last Filed: 06/14/25 02:45> Description: flap <ERICA Pacheco Last Filed: 06/14/25 02:45> Depth: simple, single layer <ERICA Pacheco Last Filed: 06/14/25 02:45> Local Anesthetic: lidocaine 1% <ERICA Pacheco Last Filed: 06/14/25 02:45> Amount of anesthesia used (mL): 5 <ERICA Pacheco Last Filed: 06/14/25 02:45> Pre-repair: irrigated <ERICA Pacheco Last Filed: 06/14/25 02:45> ====== Skin Level ======: Skin layer closed with: vicryl <ERICA Pacheco Last Filed: 06/14/25 02:45> Size (cm): 4-0 <ERICA Pacheco Last Filed: 06/14/25 02:45> Number of sutures: 6 <ERICA Pacheco Last Filed: 06/14/25 02:45> Technique: simple, interrupted <ERICA Pacheco Last Filed: 06/14/25 02:45> ====== Subcutaneous Layer ======: ====== Muscle Layer ======: ====== Tendon Layer ======: MDM - Wound/Laceration MDM Narrative Medical decision making narrative: MSE by DELICIA in triage. <Katerin Gonzalez PA-C - Last Filed: 06/13/25 17:13> MSE by DELICIA in triage. Patient is a 59-year-old female who presents the ED with report of a laceration to her right forearm. 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 Hit her head and sustained contusion to R forehead. Denied LOC. Sustained lacerations to R forearm from broken glass. Unsure of tetanus status. Denies any other areas of pain or injury. Patient is sitting comfortably upon my initial assessment. Various superficial abrasions up and down her right arm and hand. Single curvilinear well-circumscribed laceration approximately 3 cm on right proximal forearm. Forearm x-ray demonstrated no acute fracture or malalignment. CT head and neck demonstrated no acute abnormalities. Administered tetanus. Given Toradol for pain control. Six sutures placed in the patient's arm to close the laceration. Patient discharged home with proper laceration instructions. <ERICA Pacheco Last Filed: 06/14/25 02:45> Medical Records Attestation: I reviewed the patient's medical records. <ERICA Pacheco Last Filed: 06/14/25 02:45> Lab Data Attestation: I reviewed the patient's lab results. <ERICA Pacheco Last Filed: 06/14/25 02:45> Imaging Data Attestation: I personally reviewed and interpreted this imaging study as follows: <ERICA Pacheco Last Filed: 06/14/25 02:45> Radiologist's impression: ITS Impressions Forearm X-Ray 06/13/25 17:36 Impression: No acute fracture or malalignment. Head CT 06/13/25 19:07 IMPRESSION: 1. No acute intracranial abnormality. Cervical Spine CT 06/13/25 19:09 IMPRESSION: 1. No acute abnormality of the cervical spine. <ERICA Pacheco Last Filed: 06/14/25 02:45> Discharge Plan Discharge Clinical Impression: Laceration <VALERIE Carroll Last Filed: 06/13/25 17:13> Patient Disposition: Home <VALERIE Carroll Last Filed: 06/13/25 17:13> Condition: Stable <VALERIE Carroll Last Filed: 06/13/25 17:13> Instructions: Laceration (ED) <VALERIE Carroll Last Filed: 06/13/25 17:13> Additional Instructions: Return to the emergency department if you experience fever, chest pain, shortness of breath, abdominal pain with nausea and vomiting, weakness, numbness/tingling, or any other symptoms that are concerning to you. Keep wound clean and dry for the first 24 hours. Gently wash with mild soap and water daily after 24 hours. Apply a thin layer of antibiotic ointment and cover with a sterile dressing. Change dressing daily or if it becomes wet or dirty. Avoid strenuous activity or stretching that may open the wound. Do not pick at stitches or scabs. Return to ED if you notice redness, swelling, or warmth around the wound, pus or foul smelling drainage, fever/chills, or worsening pain or bleeding that cannot be controlled with pressure. Use acetaminophen or ibuprofen for pain. Stitches should be removed in approximately 7 days by your primary care provider or urgent care provider. Follow up with primary care doctor <Katerin Gonzalez PA-C - Last Filed: 06/13/25 17:13> Patient Language: Swedish <Katerin Gonzalez PA-C - Last Filed: 06/13/25 17:13> Prescriptions: No Action mupirocin 2 % ointment 1 applic topical BID Qty: 15 1RF (DME) Skin Prep Wipes Misc See Rx Instructions .Route Qty: 50 1RF Rx Instructions: As directed clobetasol 0.05 % cream 1 applic topical BID 14 Days Qty: 15 1RF dapagliflozin propanediol [Farxiga] 10 mg tablet 10 mg PO QAM Qty: 90 1RF ipratropium bromide 21 mcg (0.03 %) spray,non-aerosol 2 spray intranasal BID Qty: 30 0RF Rx Instructions: administer into each nostril ondansetron 4 mg tablet,disintegrating 4 mg PO Q8H PRN (Reason: nausea and vomiting) Qty: 14 0RF benzonatate 100 mg capsule 100 - 200 mg PO TID PRN (Reason: cough) Qty: 60 0RF Rx Instructions: Take 1 to 2 caps (100 to 200 mg) TID prn for cough. Max 600 mg/day albuterol sulfate 90 mcg/actuation HFA aerosol inhaler 1 puff inhalation Q4-6H PRN (Reason: shortness of breath or wheezing) Qty: 8.5 0RF glucagon 3 mg/actuation spray,non-aerosol 3 mg intranasal ONCE Qty: 2 4RF Rx Instructions: as a single dose; may repeat once in 15 minutes if no response cetirizine 10 mg tablet 10 mg PO DAILY Qty: 90 3RF (DME) Skin Prep Wipes Misc See Rx Instructions .Route Qty: 50 11RF Rx Instructions: As directed lorazepam [Ativan] 0.5 mg tablet 0.5 mg PO DAILY PRN (Reason: anxiety) Qty: 30 0RF acetaminophen 500 mg tablet 1,000 mg PO TID PRN (Reason: james) 7 Days Qty: 42 0RF (DME) blood-glucose meter [OneTouch Verio Flex Start] Kit See Rx Instructions .Route Qty: 1 0RF Rx Instructions: check BS daily, e11.9 (DME) pen needle, diabetic [Easy Comfort Pen Mitchell] 32 gauge x 5/32 needle See Rx Instructions .Route Qty: 100 2RF Rx Instructions: use to administer insulin once a day atorvastatin 40 mg tablet See Rx Instructions .ROUTE .COMPLEX Qty: 100 1RF Dose Instruction: TAKE 1 TABLET BY MOUTH IN THE EVENING Rx Instructions: TAKE 1 TABLET BY MOUTH IN THE EVENING Ozempic 1 mg/dose (4 mg/3 mL) pen injector 1 mg subcut WEEKLY 90 Days Qty: 9 4RF oxybutynin chloride 5 mg tablet 5 mg PO BID Qty: 180 3RF insulin glargine [Lantus Solostar U-100 Insulin] 100 unit/mL (3 mL) insulin pen 20 unit subcut QPM Qty: 15 1RF (DME) OneTouch Verio test strips Strip See Rx Instructions .Route Qty: 300 3RF Rx Instructions: use to check sugars TID montelukast 10 mg tablet See Rx Instructions .ROUTE .COMPLEX Qty: 100 2RF Dose Instruction: TAKE 1 TABLET BY MOUTH DAILY AT BEDTIME Rx Instructions: TAKE 1 TABLET BY MOUTH DAILY AT BEDTIME cholecalciferol (vitamin D3) 125 mcg (5,000 unit) capsule 125 mcg PO DAILY Qty: 90 1RF ropinirole 0.25 mg tablet See Rx Instructions .ROUTE .COMPLEX Qty: 200 2RF Dose Instruction: TAKE 1 TABLET BY MOUTH TWICE DAILY Rx Instructions: TAKE 1 TABLET BY MOUTH TWICE DAILY omeprazole 40 mg capsule,delayed release(DR/EC) See Rx Instructions .ROUTE .COMPLEX Qty: 200 2RF Dose Instruction: TAKE 1 CAPSULE BY MOUTH TWICE DAILY Rx Instructions: TAKE 1 CAPSULE BY MOUTH TWICE DAILY duloxetine 30 mg capsule,delayed release(DR/EC) See Rx Instructions .ROUTE .COMPLEX Qty: 100 2RF Dose Instruction: TAKE 1 CAPSULE BY MOUTH IN THE MORNING Rx Instructions: TAKE 1 CAPSULE BY MOUTH IN THE MORNING duloxetine 60 mg capsule,delayed release(DR/EC) See Rx Instructions .ROUTE .COMPLEX Qty: 100 2RF Dose Instruction: TAKE 1 CAPSULE BY MOUTH IN THE MORNING Rx Instructions: TAKE 1 CAPSULE BY MOUTH IN THE MORNING methocarbamol 750 mg tablet 1,500 mg PO TID PRN (Reason: muscle spasm) Qty: 180 0RF ibuprofen 800 mg tablet 800 mg PO BID PRN (Reason: pain) Qty: 60 0RF fluconazole 150 mg tablet 150 mg PO ONCE Qty: 2 0RF Rx Instructions: Take 1 tablet (150 mg) by mouth once as a single dose. May repeat a second dose after 72 hours if symptoms persist. (DME) blood-glucose meter [Contour Meter] Misc See Rx Instructions .Route Qty: 1 0RF Rx Instructions: Use to check sugars TID (DME) Contour Test Strips Strip See Rx Instructions .Route Qty: 300 3RF Rx Instructions: use to check sugars TID <Katerin Gonzalez PA-C - Last Filed: 06/13/25 17:13> Follow-up/Referrals: Sylvester Eason MD [Primary Care Provider, Family Practice] <Katerin Gonzalez PA-C - Last Filed: 06/13/25 17:13>
[2025-06-13] MEDS: TETANUS,DIPHTHERIA,AC PERTUSSIS ADULT (0.5 ML) BOOSTRIX IM (17:35)
--- OUTSIDE RECORDS SUMMARY | 2025-06-13 20:46 | XMS_ITS | Encounter Summary ---
Author Organization [facility] Address 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
--- OUTSIDE RECORDS SUMMARY | 2025-06-13 20:46 | XMS_ITS | Clinical Summary ---
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
--- OUTSIDE RECORDS SUMMARY | 2025-06-13 20:46 | XMS_ITS | Clinical Summary ---
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
--- OUTSIDE RECORDS SUMMARY | 2025-06-13 20:46 | XMS_ITS | Encounter Summary ---
Author Organization [facility] [facility] Address 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
--- OUTSIDE RECORDS SUMMARY | 2025-06-13 20:46 | XMS_ITS | Clinical Summary ---
Author Organization [email or web address] Address [address] [place] [place] [address] Care Team Providers Care Printer Machine Name Role Phone Demario Hazel MD Primary Care Provider [phone] Source Comments [facility] Affiliates and Associated Physician Practices is amultiple site organization consisting of ambulatory clinics and hospital sitesin [place], [place], [place] and [place]. This disclosure is being madepursuant to the Care Everywhere program and may not contain all information available regarding this patient. Last updated 18.[facility] Allergies Active Allergy Reactions Criticality Noted Date [...] on file Legal Sex Female 6:18 PM ORGANIC GARDENING TEACHER Gender Identity Not on file Sexual [...] 112.5 kg (248 lb) 06/25/2014 8:52 AM ORGANIC GARDENING TEACHER Height 170.2 cm (5' 7) 06/25/2014 8:52 AM ORGANIC GARDENING TEACHER Body Mass Index 38.84 06/25/2014 8:52 AM ORGANIC GARDENING TEACHER Plan of Treatment Health Maintenance Due Date [...] patient's age to complete this topic Insurance [facility] MANAGED MEDICARE ADV [facility] MANAGED MEDICARE ADV Care Teams Printer Machine Relationship Specialty Start Date End Date Demario Hazel MD [address] [place] [phone] PCP - General 05/28/14
--- OUTSIDE RECORDS SUMMARY | 2025-06-13 20:46 | XMS_ITS | Encounter Summary ---
Author Organization [facility] Address [address] [place] [address] Care Team Providers Care Chemical Manager Name Role Phone Sylvester Eason MD Primary Care Provider [phone] Encounter Details Date Type Department Care Team (Latest Contact Info) Description 03/05/2007 Outpatient [facility] Gunnar Wong MD [address] [place] [address] Other Specified Screening (Primary Dx) Social History Tobacco Use Types Packs/Day Years Used Date Smoking Tobacco: Never Assessed Comments Unknown Sex and Gender Information Value Date Recorded Sex Assigned at Not on file Legal Sex Female 4:59 AM ESL INSTRUCTIONAL ASSISTANT Gender Identity Not on file Sexual Orientation Not on file documented as of this encounter Plan of Treatment Not on file documented as of this encounter Visit Diagnoses Diagnosis Other screening- Primary Other specified screening documented in this encounter Care Teams Chemical Manager Relationship Specialty Start Date End Date Sylvester Eason MD [address] [place] [phone] PCP - General Family Practice 12/03/20 documented as of this encounter
--- OUTSIDE RECORDS SUMMARY | 2025-06-13 20:46 | XMS_ITS | Encounter Summary ---
Author Organization [facility] Address [address] [place] [address] Care Team Providers Care Human Resources Executive Assistant Name Role Phone Sylvester Eason MD Primary Care Provider [phone] Encounter Details Date Type Department Care Team (Latest Contact Info) Description 04/23/2007 [facility] Gunnar Wong MD [address] [place] [address] Elderly Multigravida with Antepartum Condition or Complication (Primary Dx) Social History Tobacco Use Types Packs/Day Years Used Date Smoking Tobacco: Never Assessed Comments Unknown Sex and Gender Information Value Date Recorded Sex Assigned at Not on file Legal Sex Female 4:59 AM HOSPITAL 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
--- OUTSIDE RECORDS SUMMARY | 2025-06-13 20:46 | XMS_ITS | Encounter Summary ---
Author Organization [facility] Address 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
--- OUTSIDE RECORDS SUMMARY | 2025-06-13 20:46 | XMS_ITS | Clinical Summary ---
Author Organization [facility] Address [address] [place] [id number] Phone Care Team Providers Care Chili Powder Mixer Name Role Phone Jami Stoll MD Primary Care Provider [phone] Allergies Active Allergy Reactions Criticality Noted Date [...] on file Legal Sex Female 2:26 PM [facility] Gender Identity Not on file Sexual [...] Done Comments Influenza Vaccine (#1) [address] [place] [address] [address] MEDICARE ADVANTAGE Care Teams Chili Powder Mixer Relationship Specialty Start Date End Date Jami Stoll MD [address] [facility] [address] [facility] [address] [place] [address] PCP - General Internal Medicine 10/15/20
--- OUTSIDE RECORDS SUMMARY | 2025-06-13 20:46 | XMS_ITS | Encounter Summary ---
Author Organization [facility] Address [address] [place] [address] Care Team Providers Care Environmental Research Scientist Name Role Phone Sylvester Eason MD Primary Care Provider [phone] Encounter Details Date Type Department Care Team (Late st Contact Info) Description 03/06/2007 Outpatient Historical [facility] Maternal and Ground Floor [address] [place] [address] Dioni Silva MD NO ADDRESS ON FILE Social History Tobacco Use Types Packs/Day Years Used Date Smoking Tobacco: Never Assessed Comments Unknown Sex and Gender Information Value Date Recorded Sex Assigned at Not on file 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
--- OUTSIDE RECORDS SUMMARY | 2025-06-13 20:46 | XMS_ITS | Encounter Summary ---
Author Organization [facility] Address [address] [place] [address] Care Team Providers Care Wheel Shop Supervisor Name Role Phone Sylvester Eason MD Primary Care Provider [phone] Encounter Details Date Type Department Care Team (Late st Contact Info) Description 06/19/2007 Outpatient Historical [facility] Maternal and Ground Floor [address] [place] [address] Jeromy Muse MD NO ADDRESS ON FILE Social History Tobacco Use Types Packs/Day Years Used Date Smoking Tobacco: Never Assessed Comments Unknown Sex and Gender Information Value Date Recorded Sex Assigned at Not on file 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
[2025-06-13] MEDS: KETOROLAC 30 MG/ML VIAL (*BKC) IV PUSH (21:49)
[2025-06-13 22:31] VITALS: BP 144/71; PULSE 96; RESP 18; TEMP 36.5; O2SAT 100
[2025-06-13 22:55] VITALS: BP 144/71; PULSE 96; RESP 18; TEMP 36.5; O2SAT 100
== END 2025-06-13 22:58 | disposition home or self-care (01) ==
PROVIDERS: PCP Family Medicine
DX: S51.811A Laceration without foreign body of right forearm, initial encounter (principal); S00.83XA Contusion of other part of head, initial encounter; Z23 Encounter for immunization; I10 Essential (primary) hypertension; E11.9 Type 2 diabetes mellitus without complications; E78.2 Mixed hyperlipidemia; N32.81 Overactive bladder; K86.81 Exocrine pancreatic insufficiency; K21.9 Gastro-esophageal reflux disease without esophagitis; M17.11 Unilateral primary osteoarthritis, right knee; Z96.651 Presence of right artificial knee joint; Z79.899 Other long term (current) drug therapy; Z79.85 Long-term (current) use of injectable non-insulin antidiabetic drugs; Z79.4 Long term (current) use of insulin; W01.110A Fall on same level from slipping, tripping and stumbling with subsequent striking against sharp glass, initial encounter
CPT/HCPCS: 12002; 70450; 72125; 73090; 90471; 90715; 96374; 99284; J1885

== ENCOUNTER 2025-06-23 13:56 | Outpatient (CLI) | payer MEDICARE, SELFPAY ==
--- NOTE | ~2025-06-23 | MMUS_ITS ---
EXAMINATION: MM diag ajay implant BI w veronika, US breast RT limited INDICATION: 60-year-old female with bilateral breast implants since the 80s presents for evaluation of protrusion on the medial aspect of the right implant. She also has pain that shoots from the front of the implant into the right axilla along the chest wall. COMPARISON: 01/24/2014 and 02/03/2009. TECHNIQUE: Digital Breast Tomosynthesis CC, MLO, and implant displaced CC and MLO views of Both breasts were obtained with computer-aided detection to assist in interpretation of the study. MAMMOGRAM FINDINGS: : There are scattered areas of fibroglandular density. Bilateral breast retroglandular in place. There is a focal bulge in the inferior medial right silicone implant. The left silicone implant appears intact There is trabecular thickening in the breast parenchyma in the medial right breast with thickening of the overlying skin. In addition, there is a circumscribed mass seen in the inferior medial middle depth in the right breast. No other focal dominant mass, architectural distortion, or suspicious microc alcifications are identified. RIGHT BREAST ULTRASOUND FINDINGS: Targeted evaluation of the medial right breast was completed. There is increased echogenicity of the breast parenchyma seen in the form of snowstorm appearance consistent with extracapsular silicone material. This finding correlates to the area of palpable lump. At 3:00, 6 cm FN, there is a superficial simple cyst that measure 1.23 x 1.27 x 1.32 cm which correlates to the mammographic finding. IMPRESSION: 1. Extracapsular rupture of right retroglandular silicone implant. 2. No evidence of malignancy in either breast. 3. Left breast Retroglandular silicone implant appears intact. RECOMMENDATION: Plastic surgery consultation for additional recommendations regarding implant rupture. Annual screening bilateral mammography. BI-RADS 2, BENIGN Reviewed, dictated and finalized at location B. US FRUIT PACKER IMPRESSION: 1. Extracapsular rupture of right retroglandular silicone implant. 2. No evidence of malignancy in either breast. 3. Left breast Retroglandular silicone implant appears intact. RECOMMENDATION: Plastic surgery consultation for additional recommendations regarding implant r upture. Annual screening bilateral mammography. BI-RADS 2, BENIGN
== END 2025-06-23 13:57 | disposition home or self-care (01) ==
PROVIDERS: PCP Family Medicine; Visit Provider Physician Assistant
DX: T85.43XA Leakage of breast prosthesis and implant, initial encounter (principal); Y83.8 Other surgical procedures as the cause of abnormal reaction of the patient, or of later complication, without mention of misadventure at the time of the procedure; Z98.82 Breast implant status
CPT/HCPCS: 76642; 77062; 77066; G0279

== ENCOUNTER 2025-07-17 11:13 | Outpatient (CLI) | payer MEDICARE, SELFPAY ==
--- NOTE | ~2025-07-17 | XR_ITS ---
EXAMINATION: XR wrist RT min 3V DATE: 07/17/2025 11:29 INDICATION: Right wrist pain TECHNIQUE: Posteroanterior, ulnar deviation, oblique, and lateral views of the right wrist were obtained. COMPARISON: Right hand radiographs dated 08/10/2023 and MRI dated 09/19/23 FINDINGS: Bone alignment is normal. No fracture. Mild osteoarthritis at the triscaphe, first carpometacarpal and first interphalangeal joint and at the metacarpophalangeal joints. No erosions to suggest inflammatory arthritis. Small corticated ossicle near the tip the ulnar styloid process which could represent a degenerative loose body versus heterotopic ossicles related to chronic soft tissue injury. Soft tissues are unremarkable. IMPRESSION: 1. 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 No acute osseous abnormality. Reviewed, dictated and finalized at location A. X RAY PHYSICIAN IMPRESSION: 1. Mild polyarticular osteoarthritis at the right hand with typical distributio n. No acute osseous abnormality.
== END 2025-07-17 11:14 | disposition home or self-care (01) ==
PROVIDERS: PCP Family Medicine; Visit Provider Physician Assistant
DX: M19.041 Primary osteoarthritis, right hand (principal); W19.XXXA Unspecified fall, initial encounter
CPT/HCPCS: 73110